=== PATIENT | female | born 1990 | race Caucasian/White ===

== ENCOUNTER 2019-09-07 02:14 | Day surgery (SDC) | payer OTHER, SELFPAY ==
[2019-08-24 11:39] VITALS: BMI 31.8
[2019-09-07] VITALS (8 sets, daily range): BP systolic 103–123; BP diastolic 62–83; PULSE 47–88; RESP 12–16; TEMP 36.1–36.7; O2SAT 99–100; BMI 31.8
--- NOTE | 2019-09-07 07:03 | WPDANESEPPF ---
Anes - Initial Pre Proc Eval Procedure: Operation Date: 09/07/19 07:30 Proposed Procedures p Laparoscopic Bilateral Tubal Cautery - Darlene Milton MD Date/Time: 09/07/19 07:03 Surgeon: Darlene Milton MD Pre Op Diagnosis: sterilization Patient Data Age: 29 Gender: F Height: 5 ft 3 in Weight: 81.65 kg Last Vital Signs Temp 36.1 C L 09/07/19 06:54 Pulse 57 L 09/07/19 06:54 Resp 14 09/07/19 06:54 BP 118/83 09/07/19 06:54 Pulse Ox 99 09/07/19 06:54 Allergies Allergy/AdvReac Type Severity Reaction Status Date / Time No Known Allergies Allergy Verified 09/07/19 06:38 Home Medications Medication Instructions Recorded Confirmed Type PNV cmb#95-ferrous fumarate-FA 1 tablet PO DAILY 06/23/19 09/07/19 History [] Patient hx anesthesia problems: none Family hx anesthesia problems: none PMFSH Surgical History Surgical History (Updated 09/07/19 @ 07:03 by Jonathan Limon MD) Hx of tonsillectomy Family History Family History Father Diabetes mellitus Hypertension Social History Social History Smoking status: Never smoker Substance use: never Gender identity (if verbalized by the patient): Female Spiritual care concerns: No Anes - Eval Final PreProcedure Day of Procedure 09/07/19 07:03 Patient weight: overweight Heart: regular rate and rhythm Lungs: clear to auscultation Airway: Mallampati scale class II Neurological: alert and oriented Last oral intake: >/= 8 hours ASA classification: II Emergent: no Anesthetic plan: proceed Anesthesia type and monitoring: general ETT and standard monitoring Informed Consent: The patient's anesthetic plan and its attendant risks and benefits were discussed with the patient/family/POA. Questions were solicited and answers provided to the satisfaction of the patient/family/POA.
[2019-09-07] MEDS: LACTATED RINGERS 1,000 ML 30 ML IV CONT ×2 (07:11→08:25)
--- NOTE | 2019-09-07 07:35 | PM.IMHP ---
H&P: HPI History of Present Illness Chief complaint: sterilization Narrative: Nathalia Mora is a 29 year old female who wants sterilization. We have agreed to perform laparoscopic bilateral tubal ligation. She understands the risk patient stands that injuries may occur that result in severe illness, more surgery, and hospitalization. She understands risk of hemorrhage infection. Review of Systems Constitutional: Constitutional: Reports no additional constitutional complaints, Denies fatigue, Denies headache(s), Denies lethargy and Denies weakness Eyes: Eyes: Reports no additional eye complaints, Denies blurry vision and Denies photophobia ENT: Reports as per HPI, Denies headache(s) and Denies neck pain Cardiovascular: Cardiovascular: Denies chest pain, Denies diaphoresis, Denies leg edema, Denies palpitations and Denies dyspnea Respiratory: Respiratory: Denies hemoptysis, Denies dyspnea and Denies wheezing Gastrointestinal: Gastrointestinal: Denies abdominal pain, Denies melena, Denies bloating, Denies hematochezia, Denies nausea and Denies vomiting Genitourinary: Genitourinary: Reports no additional female genitourinary complaints Musculoskeletal: Musculoskeletal: Denies joint swelling, Denies neck pain, Denies numbness and Denies stiffness Neurologic: Denies Abnormal speech present, Denies confusion, Denies headache(s), Denies numbness and Denies weakness Psychiatric: Psychiatric: Denies anxiety, Denies confusion, Denies depression, Denies homicidal ideation and Denies suicidal ideation Endocrine: Endocrine: Denies fatigue and Denies palpitations Allergic/Immunologic: Allergic/Immunologic: Denies wheezing COUNT INCLUDES THE [facility] Surgical History Surgical History (Updated 09/07/19 @ 07:03 by Jonathan Limon MD) Hx of tonsillectomy Family History Family History Father Diabetes mellitus Hypertension Social History Social History Smoking status: Never smoker Substance use: never Gender identity (if verbalized by the patient): Female Spiritual care concerns: No Meds Home Medications and Allergies Home Medications Medication Instructions Recorded Confirmed Type PNV cmb#95-ferrous fumarate-FA 1 tablet PO DAILY 06/23/19 09/07/19 History [] Allergies Allergy/AdvReac Type Severity Reaction Status Date / Time No Known Allergies Allergy Verified 09/07/19 06:38 Vital Signs Vital Signs - 24 hr 09/07/19 06:54 Temperature 97.0 F L Pulse Rate 57 L Respiratory Rate 14 Blood Pressure 118/83 Pulse Oximetry 99 Exam Const: General: healthy appearing, comfortable and no acute distress; No confusion Orientation/consciousness: No confusion Eyes: Direct Ophthalmoscopy: No photophobia Resp: Auscultation: clear to auscultation bilaterally, no rales, no rhonchi and no wheezes Cardio: Rate: regular rate Heart sounds: no click, no murmurs and no rubs GI: Inspection: non-distended GI Palp: No abdominal tenderness Auscultation: normal bowel sounds Neuro: General: No confusion Speech: No Abnormal speech present Extrem: General: normal to inspection, no pedal edema and no calf tenderness Assessment and Plan Assessment and plan (1) Unwanted fertility: Code(s): Z30.09 - Encounter for other general counseling and advice on contraception Status: Acute Assessment and Plan: This patient is a 29-year-old female who has unwanted fertility. We agreed to laparoscopic bilateral tubal ligation. She understands the risks, benefits, and alternatives. She has completed the informed consent process and is ready to proceed.
[2019-09-07] MEDS: KETOROLAC 30 MG/ML VIAL (*BKC) IV PUSH (08:14)
--- NOTE | 2019-09-07 08:26 | PM.PROC ---
Procedure Note - Detailed Date of procedure: 09/07/19 Pre-op diagnosis: sterilization Post-op diagnosis: same Procedure performed: Laparoscopic bilateral tubal ligation Description of procedure: Patient was taken the operating room. She has prepped draped in the dorsal lithotomy position after induction of general anesthesia. A 5 mm abdominal incision was made in left upper quadrant of the abdomen with scalpel. A 5 mm trocars inserted the intra-abdominal cavity under direct visualization of the scope. Pneumoperitoneum was achieved. A 5 mm periumbilical incision was made using a scalpel on the abdominal scan. A 5 mm trocar was inserted the intra-abdominal cavity under visualization of the scope. The fallopian tube was grasped with the bipolar cautery in the ampullary region. It was completely desiccated in a 1.5 cm area of the fallopian tube. This was performed in identical fashion on the contralateral side. The instruments were withdrawn. The pneumoperitoneum was reduced. The trocars were removed. The skin was closed with subcuticular 4 Monocryl. This incisions were covered with Dermabond. The patient tolerated the procedure well. She was taken to recover room in stable condition. Anesthesia: GETA Surgeon: Darlene Milton MD Estimated blood loss (mL): 10 Drains: No Packing: No Pathology: none sent Complications: No immediate complications Condition: stable Disposition: PACU Findings: Normal female pelvic anatomy.
== END 2019-09-07 10:20 | disposition home or self-care (01) ==
PROVIDERS: Visit Provider Obstetrics & Gynecology
PROC: (CPT 58671; principal; 2019-09-07 07:30)
DX: Z30.2 Encounter for sterilization (principal)
CPT/HCPCS: 58670; A9270; J0131; J0330; J1100; J1885; J2250; J2405; J2704; J3010; J7120

== ENCOUNTER 2019-09-16 18:41 | Emergency (ER) | payer OTHER, SELFPAY ==
[2019-09-16 19:02] VITALS: BP 124/83; PULSE 71; RESP 14; TEMP 36.7; O2SAT 99
--- NOTE | 2019-09-16 19:09 | ED.URI ---
HPI - URI/Sore Throat General Chief Complaint: Upper Respiratory Infection Stated Complaint: Headache/Sore Throat/Sneezing/Runny Nose Time Seen by Provider: 09/16/19 19:09 Source: patient and RN notes reviewed History of Present Illness HPI Narrative: Patient is a 29-year-old female that presents the urgent care with complaints of sneezing, rhinorrhea, sore throat, headache. Patient has been using Tylenol. States that she is currently breast-feeding and does not want to get her young sick. Patient states that her daughter was exposed to flu but no one in the home has been diagnosed with influenza or strep. No other acute complaints. Patient looks slightly fatigued but otherwise no acute distress noted. Patient read the plan of care. Related Data Home Medications Medication Instructions Recorded Confirmed PNV cmb#95-ferrous fumarate-FA 1 tablet PO DAILY 06/23/19 09/07/19 [] Allergies Allergy/AdvReac Type Severity Reaction Status Date / Time No Known Allergies Allergy Verified 09/16/19 19:11 Review of Systems Review of Systems: Narrative: CONSTITUTIONAL: Denies fever, chills, or sweats. EYES: Denies visual changes, redness, or discharge. ENT: Reports of sore throat, sneezing, runny nose CARDIOVASCULAR: Denies chest pain, palpitations, or edema. RESPIRATORY: Denies cough or dyspnea. GASTROINTESTINAL: Denies abdominal pain, nausea, vomiting, or diarrhea. GENITOURINARY: Denies dysuria or hematuria. SKIN: Denies rash or itching. MUSCULOSKELETAL: Denies back pain, joint pain, or myalgia. NEUROLOGIC: Reports of headache All other systems reviewed are negative, except as documented in HPI. [facility] Surgical History Surgical History (Updated 09/07/19 @ 07:03 by Jonathan Limon MD) Hx of tonsillectomy Social History Social History Smoking status: Never smoker Substance use: never Gender identity (if verbalized by the patient): Female Spiritual care concerns: No Comments At the time of my signature, I reviewed and agree with the nursing past medical, surgical, social, and family history. There is no relevant family history pertinent to the patient complaint. Exam Narrative: Exam Narrative: GENERAL: This is a well-nourished, well-developed patient, appears slightly fatigued HEAD: normocephalic, atraumatic. EYES: PERRL. Sclera clear/white. Vision is grossly intact. EARS: External ears normal, auditory canals clear and without drainage, TMs normal without perforation. Hearing grossly intact. NOSE: External nose normal with no obvious nasal discharge, nares without redness, no rhinorrhea. THROAT: Mucous membranes moist, posterior pharynx clear. Moderate postnasal drainage NECK: Neck supple CARDIOVASCULAR: Regular rate and rhythm without murmurs, gallops, or rubs. RESPIRATORY: Clear to auscultation. Breath sounds equal bilaterally. No wheezes, rales, or rhonchi. SKIN: warm, intact with no suspicious lesions or rash, good texture and turgor. NEURO: awake, alert, and oriented to person, place and time. There were no obvious focal neurologic abnormalities. EXTREMITIES: No clubbing, cyanosis, or edema. Course Vital Signs Vital signs: Vital Signs Temperature 98.1 F 09/16/19 19:02 Pulse Rate 71 09/16/19 19:02 Respiratory Rate 14 09/16/19 19:02 Blood Pressure 124/83 09/16/19 19:02 Pulse Oximetry 99 09/16/19 19:02 Temperature 98.1 F 09/16/19 19:02 Pulse Rate 71 09/16/19 19:02 Respiratory Rate 14 09/16/19 19:02 Blood Pressure 124/83 09/16/19 19:02 Pulse Oximetry 99 09/16/19 19:02 Reviewed MDM - URI/Sore Throat MDM Narrative Medical decision making narrative: Reviewed lab results with the patient. She is aware that strep swab was negative. Educated her on culture we will call within 72 hours if culture is positive and antibiotics are necessary. Patient is also aware that her influenza swab was negative.
== END 2019-09-16 19:30 | disposition home or self-care (01) ==
PROVIDERS: Emergency Provider Nurse Practitioner Family; PCP Internal Medicine
DX: J06.9 Acute upper respiratory infection, unspecified (principal); K21.9 Gastro-esophageal reflux disease without esophagitis
CPT/HCPCS: 87081; 87804; 87880; 99213; G0463

== ENCOUNTER 2019-09-28 15:55 | Emergency (ER) | payer OTHER, SELFPAY ==
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
[2019-09-28 16:02] VITALS: BP 136/86; PULSE 62; RESP 16; TEMP 37.3; O2SAT 100
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
== END 2019-09-28 17:25 | disposition home or self-care (01) ==
PROVIDERS: Emergency Provider Registered Nurse; PCP Internal Medicine
DX: S13.4XXA Sprain of ligaments of cervical spine, initial encounter (principal); V43.52XA Car driver injured in collision with other type car in traffic accident, initial encounter; M54.6 Pain in thoracic spine; K21.9 Gastro-esophageal reflux disease without esophagitis
CPT/HCPCS: 72050; 99213; G0463

== ENCOUNTER 2020-11-15 08:11 | Emergency (ER) | payer BC, SELFPAY ==
[2020-11-15 08:24] VITALS: BP 158/93; PULSE 91; RESP 20; TEMP 36.6; O2SAT 98
--- NOTE | 2020-11-15 08:55 | ED.NECK ---
HPI - Neck Pain/Injury General Chief Complaint: Neck Pain/Injury Stated Complaint: Neck pain radiating to shoulder Time Seen by Provider: 11/15/20 08:35 Source: patient and RN notes reviewed Mode of arrival: ambulatory Limitations: no limitations History of Present Illness HPI Narrative: Patient presents today complaining of right neck pain since 730 last night. Pain is radiating to the right shoulder. States she did have some intermittent tingling in the fingers last night, but this has since resolved. Denies any known injury or trauma. Denies weakness in her arms or hands. 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 States she has taken Tylenol and ibuprofen without relief. She has had both of her COVID-19 vaccinations. MD complaint: neck pain Related Data Allergies Allergy/AdvReac Type Severity Reaction Status Date / Time No Known Allergies Allergy Verified 11/15/20 08:38 Review of Systems Review of Systems: Narrative: CONSTITUTIONAL: Denies body aches, fever, chills, or sweats. EYES: Denies visual changes, redness, or discharge. ENT: Denies rhinorrhea, congestion, sore throat, or otalgia. CARDIOVASCULAR: Denies chest pain, palpitations, or edema. RESPIRATORY: Denies cough or dyspnea. GASTROINTESTINAL: Denies abdominal pain, nausea, vomiting, or diarrhea. GENITOURINARY: Denies dysuria or hematuria. SKIN: Denies rash, itching, or wounds. MUSCULOSKELETAL: Denies back pain, joint pain, or myalgia.+ Neck pain NEUROLOGIC: Denies headache, numbness, tingling, or weakness. PSYCH: Denies depression or anxiety. [facility] Past Medical History Medical History (Updated 11/15/20 @ 09:02 by Kati Larsen, [facility], ) Migraines Surgical History Surgical History (Updated 11/15/20 @ 08:57 by Kati Larsen, [facility], ) H/O tubal ligation Hx of tonsillectomy Family History Family History Father Diabetes mellitus Hypertension Social History Social History Smoking status: Never smoker Substance use: never Gender identity (if verbalized by the patient): Female Spiritual care concerns: No Comments At time of signature, I have reviewed and agree with nursing past medical, surgical, social and family history unless otherwise noted. Please see nursing chart for further information. There is no relevant family history pertinent to the presenting complaint Exam Narrative: Exam Narrative: GENERAL: Well-appearing, well-nourished, and in no acute distress. HEAD: Normocephalic, atraumatic. EYES: EOMI. No redness or drainage. Conjunctivae normal. ENT: Mucous membranes pink and moist. NECK: Normal AROM with increased pain in all directions. Supple. No lymphadenopathy. Tenderness to right cervical paraspinal muscle tenderness extending to the superior anterior and posterior shoulder musculature. No bony tenderness of the cervical spine. CHEST: No respiratory distress. MUSCULOSKELETAL: No bony tenderness of the thoracic spine. EXTREMITIES: Full AROM of the right shoulder with mild increased pain with internal and external rotation. Distal sensation intact. Capillary refill normal. Radial pulse normal. Handgrips equal and strong. Bicep strength equal and strong against resistance. SKIN: Warm, dry, no rash. Capillary refill normal. Normal skin turgor. NEURO: No focal deficits. Alert and oriented x3. Gait steady. PSYCH: Normal affect. No signs of depression or anxiety. Course Vital Signs Vital signs: Vital Signs Temperature 97.8 F 11/15/20 08:24 Pulse Rate 91 11/15/20 08:24 Respiratory Rate 20 11/15/20 08:24 Blood Pressure 158/93 H 11/15/20 08:24 Pulse Oximetry 98 11/15/20 08:24 Temperature 97.8 F 11/15/20 08:24 Pulse Rate 91 11/15/20 08:24 Respirator
== END 2020-11-15 09:05 | disposition home or self-care (01) ==
PROVIDERS: Emergency Provider Nurse Practitioner
DX: S16.1XXA Strain of muscle, fascia and tendon at neck level, initial encounter (principal); X58.XXXA Exposure to other specified factors, initial encounter; K21.9 Gastro-esophageal reflux disease without esophagitis
CPT/HCPCS: 99213; G0463

== ENCOUNTER 2022-10-09 08:44 | Emergency (ER) | payer BC, SELFPAY ==
--- NOTE | ~2022-10-09 | XR_ITS ---
EXAMINATION: XR ankle LT min 3V DATE: 10/09/2022 09:05 INDICATION: Left ankle injury and pain. TECHNIQUE: 4 views of left ankle were obtained. COMPARISON: None. FINDINGS: Bone alignment is normal. No fracture. There is mild osteoarthritis of talonavicular joint. There is ankle soft tissue swelling. IMPRESSION: 1. No fracture. Reviewed, dictated and finalized at location A. [employer] AND CE[employer]ER IMPRESSION: 1. No fracture.
--- NOTE | ~2022-10-09 | XR_ITS ---
EXAMINATION: XR foot LT min 3V DATE: 10/09/2022 09:05 INDICATION: Left foot injury and pain. TECHNIQUE: 4 views of left foot were obtained. COMPARISON: None. FINDINGS: There is moderate hallux valgus. No fracture. There is mild osteoarthritis of talonavicular joint and some of the interphalangeal joints and first metatarsophalangeal joint. IMPRESSION: 1. Moderate hallux valgus. 2. Mild polyarticular osteoarthritis. Reviewed, dictated and finalized at location A. [employer]ER
[2022-10-09 08:54] VITALS: BP 153/112; PULSE 93; RESP 16; TEMP 36.2; O2SAT 99
[2022-10-09 08:57] VITALS: BP 153/112; PULSE 93; RESP 16; TEMP 36.2; O2SAT 99
--- NOTE | 2022-10-09 09:09 | ED.GENADULT ---
HPI - General Adult General Chief complaint: Extremity Injury, Lower Stated complaint: Left Ankle Injury Time Seen by Provider: 10/09/22 09:17 Source: patient and RN notes reviewed Mode of arrival: ambulatory Limitations: no limitations History of Present Illness HPI narrative: 32-year-old female presents with concern for left ankle pain. Reports yesterday she slightly stepped off of the sidewalk and rolled the ankle. She reports lateral ankle pain that radiates to the foot. Reports pain at rest, worsening pain with weight-bearing and movement. She reports she used ice, elevation and ibuprofen MD complaint: Ankle sprain Related Data Home Medications Medication Instructions Recorded Confirmed amlodipine 10 mg tablet 10 mg PO DAILY 10/09/22 10/09/22 hydrochlorothiazide 12.5 mg capsule 12.5 mg PO DAILY 10/09/22 10/09/22 lisinopril 10 mg tablet 10 mg PO DAILY 10/09/22 10/09/22 ropinirole 1 mg tablet 1 mg PO TID 10/09/22 10/09/22 semaglutide 0.25 mg or 0.5 mg (2 0.25 mg subcut WEEKLY 10/09/22 10/09/22 mg/1.5 mL) subcutaneous pen injector (Ozempic) Allergies Allergy/AdvReac Type Severity Reaction Status Date / Time No Known Allergies Allergy Verified 10/09/22 08:55 Review of Systems Review of Systems: CONSTITUTIONAL: Denies malaise, chills, sweats, or fever. SKIN: Denies rash or itching, open skin, laceration, abrasion, redness, warmth, swelling. MUSCULOSKELETAL: Reports left ankle pain NEUROLOGIC: Denies numbness, weakness All systems reviewed & are unremarkable except as noted in HPI and below PMFSH Past Medical History Medical History (Updated 10/09/22 @ 09:25 by Tari Patterson NP) Migraines Surgical History Surgical History (Updated 11/15/20 @ 08:57 by Kati Larsen, [facility], ) H/O tubal ligation Hx of tonsillectomy Family History Family History Father Diabetes mellitus Hypertension Social History Social History Smoking status: Never smoker Substance use: never Gender identity (if verbalized by the patient): Female Spiritual care concerns: No Comments At time of signature, agree with nursing past medical, surgical, social and family history. There is no relevant family history pertinent to the presenting complaint Exam Narrative: GENERAL: Well-appearing, well-nourished, and in no acute distress. HEAD: Normocephalic, atraumatic. EYES: PERRLA, conjunctivae clear NECK: Supple. CHEST: Speaks in full sentences. No respiratory distress. HEART: Regular rate and rhythm. Normal and equal peripheral pulses. EXTREMITIES: Left ankle, foot, digits have normal strength and sensation, grossly normal range of motion. Mild lateral ankle and edema without ecchymosis. 5/5 strength with ankle and flexion and extension. Normal sensation with sensitivity to light touch and pain. Lateral ankle tenderness. No open wounds, no skin tenting, no devitalized tissue or atrophy, no trophic changes, no obvious deformity, alignment normal, nearby joints and structures intact. Distal pulses palpable and equal bilaterally, skin warm, dry, pink. Capillary refill less than 3 seconds. SKIN: Warm, dry, no rash. NEURO: Alert and oriented x3. PSYCH: Normal mood and affect Course Course Emergency Course: Patient is aware of diagnosis, understands and agrees to treatment plan. Anticipatory guidance given. Patient agrees to follow-up as directed and is aware of reasons to seek care at the emergency department. Portions of this record may have been created with voice recognition software Level of Care: Express Care Visit Vital Signs Vital signs: Vital Signs Temperature 97.1 F L 10/09/22 08:54 Pulse Rate 93 10/09/22 08:54 Respiratory Rate 16 10/09/22 08:54 Blood Pressure 153/112 H 10/09/22 08:54 Pulse Oximetry 99 10/09/22 08:54 Oxygen Delivery Room Air 10/09/22 08:54 Temperat
== END 2022-10-09 09:33 | disposition home or self-care (01) ==
PROVIDERS: Emergency Provider Nurse Practitioner
DX: S93.402A Sprain of unspecified ligament of left ankle, initial encounter (principal); X50.9XXA Other and unspecified overexertion or strenuous movements or postures, initial encounter; I10 Essential (primary) hypertension; K21.9 Gastro-esophageal reflux disease without esophagitis
CPT/HCPCS: 73610; 73630; 99214; G0463

== ENCOUNTER 2024-03-23 18:35 | Emergency (ER) | payer BC, SELFPAY | END 2024-03-23 19:25 | disposition home or self-care (01) | PROVIDERS: Emergency Provider Nurse Practitioner Family; PCP Physician Assistant | DX: U07.1 COVID-19 (principal); I10 Essential (primary) hypertension | CPT/HCPCS: 99213; G0463 ==

== ENCOUNTER 2025-01-13 16:13 | Emergency (ER) | payer BC, SELFPAY ==
--- OUTSIDE RECORDS SUMMARY | 2025-01-13 16:15 | XMS_ITS | Clinical Summary ---
Author Organization [facility] [address] [facility] Address [address] [address] Care Team Providers Care Counter Person Name Role Phone No, Physician Primary Care Provider [phone] Arlene Vargas Unavailable Unavailable Allergies Active Allergy Reactions Criticality Noted Date Comments Lisinopril Cough Low 02/07/2022 Topiramate Other (See comments) Low 04/22/2021 NUMBNESS FEELING IN FINGERTIPS Medications traMADol (ULTRAM) 50 mg tablet Take 1-2 tablets (50-100 mg total) by mouth every 6 (six) hours as needed for pain (1 tablet for mild to moderate pain or 2 tablets for severe pain). 20 tablet 07/15/20 17 Active Additional Information Patient not taking.Reported on 10/19/2024 ondansetron (ZOFRAN) 4 mg tablet Take 1 tablet (4 mg total) by mouth every 8 (eight) hours as needed for vomiting or nausea 40 tablet 10/14/19 24 Active Additional Information Patient not taking.Reported on 10/19/2024 pramipexole (MIRAPEX) 0.25 mg tablet Take 1 tablet (0.25 mg total) by mouth nightly Active buPROPion XL (WELLBUTRIN XL) 150 mg 24 hr tablet Take 1 tablet (150 mg total) by mouth speech therapist early intervention before breakfast 02/03/20 24 Active amLODIPine (NORVASC) 10 mg tablet Take 1 tablet (10 mg total) by mouth daily 05/28/20 23 Active SUMAtriptan (IMITREX) 50 mg tablet Take 1 tablet (50 mg total) by mouth daily as needed 04/22/20 21 Active LORazepam (ATIVAN) 1 mg tablet Take 1 tablet (1 mg total) by mouth once for 1 dose Take 30 minutes prior to procedure 1 tablet 08/19/19 25 Active docusate sodium (COLACE) 100 mg capsuleIndicat ions:constipat ion Take 1 capsule (100 mg total) by mouth 2 (two) times a day 60 capsule 3 08/19/19 25 Active Additional Information Patient not taking.Reported on 10/19/2024 estradioL (ESTRACE) 2 mg tablet Take 1 tablet (2 mg total) by mouth daily for 10 days 10 tablet 01/11/20 25 025 Active tranexamic acid (LYSTEDA) 650 mg tablet Take 2 tablets (1,300 mg total) by mouth 3 (three) times a day 30 tablet 08/18/19 25 025 Discontinued Active Problems Problem Noted Date Diagnosed Date Type 2 diabetes mellitus 05/18/2023 LEVI (obstructive sleep apnea) 11/08/2021 Restless legs syndrome (RLS) 11/08/2021 Post-nasal drip 11/08/2021 Other seborrheic dermatitis 09/28/2016 Other alopecia areata 09/26/2016 Encounters Date Type Department Care Team Description 01/10/2025 Orders Only [address] [address] Kati Schumacher DO 10/19/2024 9:15 AM CDT Office Visit [facility] [address] [place] [address] Kati Schumacher DO Encounter for routine checking of intrauterine contraceptive device (IUD) (Primary Dx) from Last 3 Months Immunizations Immunization Administration Dates Next Due Influenza, Quadrivalent, Spl it, Preservative Free, Intramuscular 05/02/2022,05/08/2021 Surgical History Surgery Date Site/Laterality Comments TONSILLECTOMY TUBAL LIGATION CHOLECYSTECTOMY Medical History Medical History Date Comments Anxiety Migraines Hypertension Sleep apnea Menstrual problem Family History Medical History Relation Name Comments Diabetes type II Father Mickey Castro Diabetes -T ype II; Hypertension Father Mickye Castro Hypertension; Other Father Mickey Castro Alive and well; Other Mother Alive and well; Relation Name Status Comments Father Mickey Castro Alive Mother Alive Social History Tobacco Use Types Packs/Day Years Used Date Smoking Tobacco: Never Cigarettes Smokeless Tobacco: Never Alcohol Use Standard Drinks/Week Comments Not Currently 0 (1 standard drink = 0.6 oz pur e alcohol) Comments No Sex and Gender Information Value Date Recorded Sex Assigned at Not on file Legal Sex Female 11:50 PM ZANJERO Gender Identity Female 06/29/2023 10:47 PM ZANJERO Sexual Orientation Straight 06/29/2023 10 :47 PM ZANJERO Occupation Industry Job Start Date Job End Date Not on file Not on file Not on file Not on file Obstetrics History Para Term AB IAB SAB Ectopic Multiple Livin g Live Births 3 3 3 0 0 0 0 0 0 3 3 Date Outcome GA Total Labor Labor//3rd Weight Sex Type Anes PTL Angelique A1 A5 Name Clin 2010 Term 3.232 kg (7 lb 2 oz) M Vag-S pont Living 2014 Term 3.912 kg (8 lb 10 oz) F Vag-S pont Living 2018 Term 3.685 kg (8 lb 2 oz) F Vag-S pont Living Last Filed Vital Signs Vital Sign Reading Time Taken Comments Blood Pressure 128/80 10/19/2024 9:13 AM CDT Pulse 101 03/29/2021 4:43 PM CDT Temperature 37 C (98.6 F) 03/29/2021 4:43 PM CDT Respiratory Rate 16 08/31/2019 11:38 AM ZANJERO Oxygen Saturation 96% 03/29/2021 4:43 PM CDT Inhaled Oxygen Concentration - - Weight 98.9 kg (218 lb) 10/19/2024 9:13 AM CDT Height 160 cm (5' 3) 05/03/2024 2:31 PM CDT Body Mass Index 38.62 05/03/2024 2:31 PM CDT Plan of Treatment Health Maintenance Due Date Last Done Comments Albumin Creatinine Ratio, Urine 1988 Depression Screening 1988 Hemoglobin A1C 1988 Hepatitis C Screening 1988 Dilated Eye Exam 1988 Foot Exam 1988 Lipid Panel 1988 DTaP/Tdap/Td Vaccine (1 - Tdap) 1999 Varicella Vaccines (1 of 2 - 13+ 2-dose series) 2001 Hepatitis B Screening 2006 Pneumococcal vaccine <65 (1 of 2 - PCV) 2007 eGFR 07/15/2018 07/15/2017 Covid-19 Vaccine (4 - 2023-2 5 season) 2024 07/18/2021, 11/09/2020, 10/18/2020 Influenza Vaccine (Season Ended) 2025 05/02/2022, 05/08/2021 Cervical Cancer Screening 05/03/20252023, 05/03/2024 Regular Well Visit/Exam 18-64 05/03/2025 05/03/2024 HPV Vaccines Aged Out No longer eligi ble based on patient's age to complete this topic Procedures Procedure Name Priority Date/Time Associated Diagnosis Comments HIGH RISK HPV DNA DETECTION WITH GENOTYPING Routine 05/03/2024 3:43 PM CDT Screening for malignant neoplasm of the cervix EGFR Add On 07/15/2017 12:41 PM ZANJERO from Last 3 Months or Most Recently Relevant to Health Maintenance Results * High Risk HPV DNA Detection with Genotyping (Molecular component) (05/03/2024 3:43 PM CDT) HPV HR 16 Not Detected Not Detected [facility] Comment:Testing performed by : [facility], [address] [place] [address] HPV HR 18 Not Detected Not Detected [facility] Comment:Testing performed by : [facility], [address] [place] [address] HPV HR Non 16/18 Not Detected Not Detected [facility] Comment: Interpretive Data Nucleic acid amplification for detection of high-risk Human Papilloma virus (HPV) is performed by the Sunitha Uri 6800 HPV test. This assay specifically detects HPV-16 and HPV-18 genotypes. The following HPV genotypes are detected as high-risk HPV: HPV-31, 33, 35, ,39, 45, 51, 52, 56, 58, 59, 66, and 68. This assay has been approved by the [place] Food and Drug Administration for detection of HPV in cervical specimens collected by a physician using an endocervical brush/spatula or cervical broom and placed in the ThinPrep Pap Test PreservCyt collection containers. The performance characteristics of this test have been verified by the [facility] Molecular Infectious Disease laboratory. Correlate with separately reported cytology results, as applicable. Interpretive data last revised 23 Testing performed by: [facility], [address] [place]., [address] Endocervical 05/03/2024 3:43 PM CDT 05/04/2024 2:34 PM CDT Narrative [facility] - 05/04/2024 9:08 PM CDT Clinical history and diagnosis->DX Z12.4 Testing type->Screening Last menstrual period (date if known)->Unknown Kati Schumacher DO LAB BODY FLUIDS AND STO OLS ORDERABLES Final Result [facility] [address] Department [place] [address] [facility] * eGFR (07/15/2017 12:41 PM ZANJERO) eGFR >60 mL/min/1.7 3 m2 [facility] ([facility] Comment: Interpretive Data Reference Interval Normal >/= 90 mL/min/1.73m2 Mildly decreased* 60 - 89 mL/min/1.73m2 Mildly to moderately decreased 45 - 59 mL/min/1.73m2 Moderately to severely decreased 30 - 44 mL/min/1.73m2 Severely decreased 15 - 29 mL/min/1.73m2 Kidney Failure < 15 mL/min/1.73m2 *Relative to young adult level If -Swiss multiply value by 1.16. Estimated glomerular filtration rate is determined by the CKD-EPI equation recommended by the National Kidney Foundation (KDIGO 2012 Clinical Practice Guideline for the Evaluation and Management of Chronic Kidney Disease. Kidney Intnl Suppl Aug 2012;3:1). The CKD-EPI equation should not be used for patients with unstable renal function and has not been validated in children and those over 70. Current interpretive data was last reviewed 2016. Blood specimen (specimen) 07/15/2017 12:41 PM ZANJERO 07/15/2017 1:17 PM ZANJERO Narrative [facility] ([facility]) - 07/15/2017 1:53 PM ZANJERO us Rikki Ma Jr., MD LAB BLOOD ORDERABL ES Final Result [facility] ([facility]) [address] [facility] [place] [address] from Last 3 Months or Most Recently Relevant to Health Maintenance [place] [employer] [place] [employer] [place] [employer] [place] [facility] Care Teams Counter Person Relationship Specialty Start Date End Date No, Physician PCP - General 08/31/19 Arlene Vargas 08/31/19
--- OUTSIDE RECORDS SUMMARY | 2025-01-13 16:15 | XMS_ITS | Encounter Summary ---
Author Organization [facility] Address [address] [place] [address] Phone Care Team Providers Care Product Marketing Manager Name Role Phone Meg Tyler PAC Primary Care Pro vider Flaca Harrell APRN, [employer] Unavailable Reason for Visit * Reason Comments Medication Refill Encounter Details Date Type Department Care Team (Late st Contact Info) Description 12/16/2022 Refill [facility] - Internal Medicine - [place] [address] [place] [id number] Meg Tyler, [facility] [address] [place] [address] Medication Refill Social History Tobacco Use Types Packs/Day Years Used Date Smoking Tobacco: Never Smokeless Tobacco: Never Alcohol Use Standard Drinks/Week Comments Not Currently 0 (1 standard drink = 0.6 oz pur e alcohol) PHQ-2 Answer Date Recorded Total Score - Questions 1-9 1 12/02 Sexually Active Control Partners Comments Not Currently Comments Unknown Sex and Gender Information Value Date Recorded Sex Assigned at Not on file Legal Sex Female 12:14 PM CDT Gender Identity Not on file Sexual Orientation Not on file documented as of this encounter Plan of Treatment Not on file documented as of this encounter Visit Diagnoses Not on filedocumented in this encounter Additional Health Concerns Infection Onset Date Last Indicated Resolved Time Respiratory Rule Out - RPA 05/14/2023 05/14/2023 1 2:47 PM CDT Assessment Noted Time PHQ-9 Depression Total Score: 0 04/22/20 10:00 AM CDT documented as of this encounter Care Teams Product Marketing Manager Relationship Specialty Start Date End Date Meg Tyler, [place] [address] [place] [address] PCP - General Physician Lunchroom Aide 04/22/21 Flaca Harrell, MULTI SITE LEASING CONSULTANT, [employer] [address] [place] [address] Nurse Practitioner Advanced Practice Nurse 12/01/23 documented as of this encounter
--- OUTSIDE RECORDS SUMMARY | 2025-01-13 16:15 | XMS_ITS | Clinical Summary ---
Author Organization [facility] Address [address] [place] [address] Care Team Providers Care Production Support Developer Name Role Phone Meg Tyler Primary Care Pro vider Flaca Harrell APRN, INTERNAL REVIEW AND AUDIT COMPLIANCE Unavailable Allergies Active Allergy Reactions Criticality Noted Date Comments Lisinopril Other (see Comments) Low 02/07/2022 cough Topiramate Other (see Comments) 04/22/2021 NUMBNESS FEELING IN FINGERTIPS Bupropion Other (see Comments) 11/07/2024 Increased depressed mood Medications loratadine (CLARITIN) 10 MG TabletIndications: Post-nasal drip Take 1 Tablet by mouth daily. 90 Tablet 3 11/09/19 22 Active ondansetron (Zofran) 4 MG Tablet Take 1 Tablet by mouth every 8 hours as needed for Nausea - 1st line. 15 Tablet 10/14/19 24 Active HYDROcodone-acetam inophen (NORCO) 5-325 MG TabletIndications: S/P laparoscopic cholecystectomy Take 1-2 Tablets by mouth every 8 hours as needed for Moderate or more severe pain. 12 Tablet 03/03/20 24 Active SUMAtriptan (IMITREX) 50 MG Tablet TAKE 1 TABLET BY MOUTH ONCE NEEDED FOR MIGRAINE UP TO 1 DOSE DIRECTED MAY REPEAT IN 2 HOURS 12 Tablet 1 07/19/20 24 Active amLODIPine (NORVASC) 10 MG Tablet TAKE 1 TABLET BY MOUTH EVERY DAY 90 Tablet 3 10/11/19 25 Active escitalopram (LEXAPRO) 10 MG Tablet Take 1 Tablet by mouth daily. 90 Tablet 11/08/19 25 Active pramipexole (MIRAPEX) 0.25 MG Tablet TAKE 1 TABLET BY MOUTH EVERY DAY AT NIGHT 30 Tablet 12/31/19 25 Active pramipexole (MIRAPEX) 0.25 MG Tablet Take 1 Tablet by mouth nightly. 30 Tablet 09/27/19 25 025 Discontinued Active Problems Problem Noted Date Diagnosed Date Type 2 diabetes mellitus 05/18/2023 Family history of heart disease 12/22/2022 LEVI (obstructive sleep apnea) 11/08/2021 Restless legs syndrome (RLS) 11/08/2021 Post-nasal drip 11/08/2021 Encounters Date Type Department Care Team Description 12/30/2024 Refill [facility] - [facility] - [place] [address] [place] [address] Meg Tyler, [facility] Medication Refill from Last 3 Months Immunizations Immunization Administration Dates Next Due Covid-19, Mrna, Lnp-s, Pf, 30 Mcg/0.3 Ml Dose (P fizer) 07/18/2021 Influenza Vaccine, Quadrivalent, PF 05/02/2022,1 Family History Medical History Relation Name Comments Heart Surgery Brother 1 Hypertension Brother 2 Anxiety disorder Brother 3 Hypertension Brother 3 Asthma Daughter 1 No Known Problems Daughter 2 Diabetes Father Heart Attack Father Hypertension Father Alzheimer's Disease Maternal Grandfather No Known Problems Maternal Grandmother Heart Attack Mother Heart Surgery Mother Pacemaker Mother No Known Problems Paternal Grandfather No Known Problems Paternal Grandmother No Known Problems Sister Asthma Son Relation Name Status Comments Brother 1 Alive Brother 2 Alive Brother 3 Alive Daughter 1 Alive Daughter 2 Alive Father Alive Maternal Grandfather Maternal Grandmother Mother Alive Paternal Grandfather Paternal Grandmother Sister Alive Son Alive Social History Tobacco Use Types Packs/Day Years Used Date Smoking Tobacco: Never Smokeless Tobacco: Never Tobacco Cessation:Counseling Given: Not Answered Alcohol Use Standard Drinks/Week Comments Yes 0 (1 standard drink = 0.6 oz pur e alcohol) ONCE IN A YEAR [facility] Utilities Answer Date Recorded In the past 12 months has Infogram, gas, oil, or water [employer] threatened to shut off services in your home? No 10/14/2023 Social Connection and Isolation Panel Answer Date Recorded In a typical week, how many times do you talk on the phone with family, friends, or neighbors? Three times a week 10/14/2023 How often do you get togethe r with friends or relatives? Twice a week 10/14/2023 How often do you attend chur ch or church services? More than 4 times per year 10/14/2023 Do you belong to any clubs o r organizations such as bahai groups, unions, fraternal or athletic groups, or school groups? Yes 10/14/2023 How often do you attend meet ings of the clubs or organizations you belong to? 1 to 4 times per year 10/14/2023 Are you , , di vorced, , never , or living with a partner? 10/14/2023 AUDIT-C Answer Date Recorded Q1: How often do you have a drink containing alc ohol? Monthly or less 10/14/2023 Q2: How many drinks containi ng alcohol do you have on a typical day when you are drinking? 1 or 2 10/14/2023 Q3: How often do you have si x or more drinks on one occasion? Never 10/14/2023 Overall Financial Resource Strain (CARDIA) Answe r Date Recorded How hard is it for you to pa y for the very basics like food, housing, medical care, and heating? Not very hard 10/14/2023 PHQ-2 Answer Date Recorded Total Score - Questions 1-9 1 12/02 [facility] - Occupational Stress Questionnaire Answer Date Recorded Do you feel stress - tense, restless, nervous, or anxious, or unable to sleep at night because your mind is troubled all the time - these days? To some extent 10/14/2023 Exercise Vital Sign Answer Date Recorde d On average, how many days pe r week do you engage in moderate to strenuous exercise (like a brisk walk)? Patient declined On average, how many minutes do you engage in exercise at this level? Patient declined 10/14/2023 Hunger Vital Sign Answer Date Recorded Within the past 12 months, y ou worried that your food would run out before you got the money to buy more. Never true 10/14/19 24 Within the past 12 months, t he food you bought just didn't last and you didn't have money to get more. Never true 10/14/2023 PRAPARE - Transportation Answer Date Re corded In the past 12 months, has l ack of transportation kept you from medical appointments or from getting medications? No 10/01 In the past 12 months, has l ack of transportation kept you from meetings, work, or from getting things needed for daily living? No 10/14/2023 Housing Stability Vital Sign Answer Gavin e Recorded In the last 12 months, was t here a time when you were not able to pay the mortgage or rent on time? No 10/14/2023 In the last 12 months, how many places have you lived? 1 10/14/2023 In the last 12 months, was t here a time when you did not have a steady place to sleep or slept in a correction (including now)? No 10/14/2023 Education Answer Date Recorded What is the highest level of school you have completed or the highest degree you have received? Bachelor's degree (e.g., BA, AB, BS) 12/22/2022 Sexually Active Control Partners Comments Not Currently Comments Unknown Sex and Gender Information Value Date Recorded Sex Assigned at Not on file Legal Sex Female 12:14 PM CDT Gender Identity Not on file Sexual Orientation Not on file Last Filed Vital Signs Vital Sign Reading Time Taken Comments Blood Pressure 131/85 03/03/2024 11:15 AM CDT Pulse 81 03/03/2024 11:15 AM CDT Temperature 37 C (98.6 F) 03/03/2024 11:15 AM CDT Respiratory Rate 16 03/03/2024 11:15 AM CDT Oxygen Saturation 96% 03/03/2024 11:15 AM CDT Inhaled Oxygen Concentration - - Weight 99.5 kg (219 lb 6.4 oz) 03/03/2024 6:35 A M CDT Height 160 cm (5' 3) 03/03/2024 6:35 AM CDT Body Mass Index 38.86 03/03/2024 6:35 AM CDT Plan of Treatment Health Maintenance Due Date Last Done Comments Diabetes: Eye Exam 1988 Diabetes: Foot Exam 1988 Hepatitis C Virus (HCV) Screening 1988 TdaP Immunization 1988 Human Papillomavirus (HPV) Immunization (1 - 3-dose series) 2003 Hepatitis B Immunization (1 of 3 - 19+ 3-dose series) 2007 Pneumococcal Immunization Combined (1 of 2 - PCV) 2007 SARS-COV-2 Immunization ( season) 2024 07/18/2021, 11/09/2020, 10/18/2020 Diabetes: Hemoglobin A1c 04/16/2024 024, 04/18/2022, 04/24/2021 Diabetes: Nephropathy Screening 10/14/2024 10/15/2023, 04/18/2022, 04/24/2021 Influenza Immunization (Seas on Ended) 2025 05/02/2022, 05/08/2021 Pap Smear 05/03/2027 05/03/2024 Cervical Cancer Screening (CCS) 05/03/2029 HPV/Cotest 05/03/2029 05/03/2024, 05/03/2024 Respiratory Syncytial Virus (RSV) Immunization (Adult) (1 - 1-dose 75+ series) 2063 Meningococcal Immunization (ACWY) Aged Out No longer eligible b ased on patient's age to complete this topic Rotavirus Immunization Aged Out No lo nger eligible based on patient's age to complete this topic Procedures Procedure Name Priority Date/Time Associated Diagnosis Comments HUMAN PAPILLOMA VIRUS (HPV) 05/03/2024 12:00 AM CDT PATHOLOGY CYTOLOGY NURSING UNIT CLERK 05/03/2024 12:00 AM CDT CMP (COMPREHENSIVE METABOLIC PANEL) Routine 10/15/2023 7:11 AM CDT Well adult exam HEMOGLOBIN A1C W/ ESTIMATED GLUCOSE Routine 10/15/2023 7:11 AM CDT Well adult exam from Last 3 Months or Most Recently Relevant to Health Maintenance Results * PATHOLOGY CYTOLOGY NURSING UNIT CLERK (05/03/2024 12:00 AM CDT) 05/03/2024 us Provider Scan PATHOLOGY/CYTOLOGY ORDERABLES Fi nal Result SCAN * HUMAN PAPILLOMA VIRUS (HPV) (05/03/2024 12:00 AM CDT) 05/03/2024 Provider Scan LAB SEND OUTS Final Result SCAN * (ABNORMAL) HEMOGLOBIN A1C W/ ESTIMATED GLUCOSE (10/15/2023 7:11 AM CDT) HGB-A1C 6.3(H) 4.0 - 6.0 % 10/15/2023 3:24 PM CDT [email or web address] Est Average Glucose 134.1 mg/dL 10/15/2023 3:24 PM CDT [email or web address] Blood Venipuncture / Unknown 10/15/2023 7:11 AM CDT 10/15/2023 7:11 AM CDT Narrative [email or web address] - 10/15/2023 3:24 PM CDT HEMOGLOBIN A1C: DIABETIC PATIENTS: WELL-CONTROLLED: 6.2 - 7.0 INTERMEDIATE WELL-CONTROLLED: 7.0 - 9.0 POORLY-CONTROLLED: >9.0 Meg Tyler PAC CHEMISTRY ORDERAB LES Final Result Performing Organization Address City/[facility]/ZIP Co de Phone Number [facility] [address] [place] [address] * (ABNORMAL) CMP (COMPREHENSIVE METABOLIC PANEL) (10/15/2023 7:11 AM CDT) SODIUM 139 136 - 145 mmol/L 10/15/2023 3:22 PM CDT [email or web address] POTASSIUM 4.3 3.5 - 5.1 mmol/L 10/15/2023 3:22 PM CDT [email or web address] CHLORIDE 107 98 - 107 mmol/L 10/15/2023 3:22 PM CDT [email or web address] CO2, VENOUS 21(L) 22 - 30 mmol/L 10/15/2023 3:22 PM CDT [email or web address] ANION GAP 15.3 <18.0 mmol/L 10/15/2023 3:22 PM CDT [email or web address] GLUCOSE 124(H) 70 - 99 mg/dL 10/15/2023 3:22 PM CDT [email or web address] BUN 14 5 - 18 mg/dL 10/15/2023 3:22 PM CDT [facility] CREATININE, BLOOD 0.80 0.60 - 1.00 mg/dL 10/15/2023 3:22 PM CDT [facility] BUN/CREATININE RATIO 18 12 - 20 ratio 10/15/2023 3:22 PM CDT [facility] TOTAL PROTEIN 7.2 6.3 - 8.2 g/dL 10/15/2023 3:22 PM CDT [facility] ALBUMIN 4.3 3.5 - 5.0 g/dL 10/15/2023 3:22 PM CDT [facility] A/G RATIO 1.5 1.0 - 2.2 10/15/2023 3:22 PM CDT [facility] CALCIUM 9.8 8.7 - 10.5 mg/dL 10/15/2023 3:22 PM CDT [facility] T BILI 0.3 0.2 - 1.2 mg/dL 10/15/2023 3:22 PM CDT [facility] SGOT (AST) 75(H) 5 - 34 U/L 10/15/2023 3:22 PM CDT [facility] SGPT (ALT) 117(H) 0 - 55 U/L 10/15/2023 3:22 PM CDT [facility] ALKALINE PHOSPHATASE 73 40 - 150 U/L 10/15/2023 3:22 PM CDT [facility] IS THE PATIENT REQUIRED TO BE FASTING? No 10/15/2023 3:22 PM CDT [facility] GFR, ESTIMATED >60 >=60 10/15/2023 3:22 PM CDT [facility] Comment: Creatinine Clearance is the preferred criteria for selecting drug dose adjustments in renally impaired patients. The GFR is provided as additional pertinent clinical information. GFR is reported in mL/min/1.73 sq m. Calculation based on the Chronic Kidney Disease Epidemiology Collaboration (CKD- EPI) equation refit without adjustment for race. GFR, EST. >60 >=60 10/14/2 024 3:22 PM CDT [facility] GFR, EST. NONAFRICAN >60 >=60 10/15/2023 3:22 PM CDT [facility] Blood Venipuncture / Unknown 10/15/2023 7:11 AM CDT 10/15/2023 7:11 AM CDT Meg Tyler PAC CHEMISTRY ORDERAB LES Final Result [facility] [address] [place] [address] from Last 3 Months or Most Recently Relevant to Health Maintenance Insurance [facility] Care Teams Production Support Developer Relationship Specialty Start Date End Date Meg Tyler, [facility] [address] [place] [address] PCP - General Physician Pipe Liner 04/22/21 Flaca Harrell APRN, INTERNAL REVIEW AND AUDIT COMPLIANCE [address] [place] [address] Nurse Practitioner Advanced Practice Nurse 12/01/23
--- OUTSIDE RECORDS SUMMARY | 2025-01-13 16:15 | XMS_ITS | Encounter Summary ---
Author Organization [facility] Address [address] [place] [address] Phone Care Team Providers Care Social Insurance Adviser Name Role Phone Meg Tyler PAC Primary Care Pro vider Flaca Harrell APRN, SEWING MACHINE OPERATOR PLASTIC ZIPPER Unavailable Reason for Visit * Reason Comments Medication Refill Encounter Details Date Type Department Care Team (Late st Contact Info) Description 01/09/2024 Refill [facility] - Internal Medicine - [place] [address] [place] [id number] Meg Tyler, [place] [address] [place] [address] Medication Refill Social History Tobacco Use Types Packs/Day Years Used Date Smoking Tobacco: Never Smokeless Tobacco: Never Alcohol Use Standard Drinks/Week Comments Not Currently 0 (1 standard drink = 0.6 oz pur e alcohol) [facility] Utilities Answer Date Recorded In the past 12 months has [employer] electric, gas, oil, or water company threatened to shut off services in your home? No 10/14/2023 Social Connection and Isolation Panel Answer Date Recorded In a typical week, how many times do you talk on the phone with family, friends, or neighbors? Three times a week 10/14/2023 How often do you get togethe r with friends or relatives? Twice a week 10/14/2023 How often do you attend [facility] or [facility] services? More than 4 times per year 10/14/2023 Do you belong to any clubs o r organizations such as methodist groups, unions, fraternal or athletic groups, or [...] Total Score - Questions 1-9 1 12/02 [facility] - Occupational Stress Questionnaire Answer Date Recorded [...] place to sleep or slept in a custodial (including now)? No 10/14/2023 Education Answer Date [...] on file documented as of this encounter Miscellaneous Notes * Telephone Encounter - Tari Perkins RN - 01/11/2024 8:40 AM CDT Medication failed the protocol, provider to review and approve the medication order if appropriate. Requested Prescriptions Pending Prescriptions Disp Refills escitalopram (LEXAPRO) 10 MG Tablet [Pharmacy Med Name: ESCITALOPRAM 10 MG TABLET] 90 Tablet 0 Sig: TAKE 1 TABLET BY MOUTH EVERY DAY SSRI (6 Month Refill Only) Protocol Failed - 01/09/2024 7:25 AM Failed - Has an encounter in the past 6 months with a depression, anxiety, adjustment disorder, OCD, or PTSD visit diagnosis Passed - No test in the past 12 months or most recent test was negative Passed - No active on record Passed - Visit with relevant provider in past 6 months or upcoming 90 days Recent Visits Date Type Provider Dept 10/14/23 [facility], [place] [facility] Showing recent visits within past 182 days and meeting all other requirements Future Appointments No visits were found meeting these conditions. Showing future appointments within next 90 days and meeting all other requirements Passed - Patient has established therapy with SSRI for at least 6 months documented in this encounter Plan of Treatment Not on file documented as of this encounter Visit Diagnoses Not on filedocumented in this encounter Additional Health Concerns Assessment Noted Time PHQ-9 Depression Total Score: 0 04/22/20 10:00 AM CDT documented as of this encounter Care Teams Social Insurance Adviser Relationship Specialty Start Date End Date Meg Tyler PAC [address] [place] [address] PCP - General Physician Outgoing Inspector 04/22/21 Flaca Harrell APRN, SEWING MACHINE OPERATOR PLASTIC ZIPPER [address] [place] [address] Nurse Practitioner Advanced Practice Nurse 12/01/23 documented as of this encounter
--- OUTSIDE RECORDS SUMMARY | 2025-01-13 16:15 | XMS_ITS | Encounter Summary ---
Author Organization [facility] Address [address] [place] [address] Phone Care Team Providers Care Mine Boss Name Role Phone Meg Tyler PAC Primary Care Pro vider Flaca Harrell APRN, STRIPPER BLACK AND WHITE Unavailable Reason for Visit * Reason Comments Medication Refill Encounter Details Date Type Department Care Team (Late st Contact Info) Description 06/21/2023 [facility]ill [facility] - [place] [address] [place] [phone] Meg Tyler, [place] [address] [place] [address] Medication Refill Social History Tobacco Use Types Packs/Day Years Used Date Smoking Tobacco: Never Smokeless Tobacco: Never Alcohol Use Standard Drinks/Week Comments Not Currently 0 (1 standard drink = 0.6 oz pur e alcohol) PHQ-2 Answer Date Recorded Total Score - Questions 1-9 1 12/02 Education Answer Date Recorded What is the [...] Telephone Encounter - Tari Perkins RN - 06/22/2023 8:08 AM CST Medication failed the protocol, provider to review and approve the medication order if appropriate. Requested Prescriptions Pending Prescriptions Disp Refills escitalopram (LEXAPRO) 10 MG Tablet [Pharmacy Med Name: ESCITALOPRAM 10 MG TABLET] 90 Tablet 0 Sig: TAKE 1 TABLET BY MOUTH EVERY DAY SSRI (6 Month Refill Only) Protocol Failed - 06/21/2023 7:32 AM Failed - Patient has established therapy with SSRI for at least 6 months Passed - No test in the past 12 months or most recent test was negative Passed - No active on record Passed - Visit with relevant provider in past 6 months or upcoming 90 days Recent Visits Date Type Provider Dept 05/14/23 Office Visit Meg Tyler PAC [facility] 12/22/22 Office Visit Meg Tyler PAC [facility] [place] Showing recent visits within past 182 days and meeting all other requirements Future Appointments No visits were found meeting these conditions. Showing future appointments within next 90 days and meeting all other requirements Passed - Has an encounter in the past 6 months with a depression, anxiety, adjustment disorder, OCD, or PTSD visit diagnosis MCORN PRESS FEEDER documented in this encounter Plan of Treatment Not on file documented as of this encounter Visit Diagnoses Not on filedocumented in this encounter Additional Health Concerns Assessment Noted Time PHQ-9 Depression Total Score: 0 04/22/20 21 10:00 AM CDT documented as of this encounter Care Teams Mine Boss Relationship Specialty Start Date End Date Meg Tyler PAC [address] [place] [address] PCP - General Physician Efficiency Analyst 04/22/21 Flaca Harrell APRN, STRIPPER BLACK AND WHITE [address] [place] [address] Nurse Practitioner Advanced Practice Nurse 12/01/23 documented as of this encounter
--- OUTSIDE RECORDS SUMMARY | 2025-01-13 16:15 | XMS_ITS | Encounter Summary ---
Author Organization [facility] Address [address] [place] [address] Phone Care Team Providers Care Nba Player Name Role Phone Meg Tyler PAC Primary Care Pro vider Flaca Harrell APRN, JEWELER APPRENTICE Unavailable Reason for Visit * Reason Comments Medication Refill Encounter Details Date Type Department Care Team (Late st Contact Info) Description 03/20/2023 [facility]ill [facility] - [place] [address] [place] [id number] Meg Tyler, [place] [address] [place] [address] Medication Refill Social History Tobacco Use Types [...] Telephone Encounter - Tari Perkins RN - 03/20/2023 8:44 AM CDT Medication failed the protocol, provider to review and approve the medication order if appropriate. Requested Prescriptions Pending Prescriptions Disp Refills escitalopram (LEXAPRO) 10 MG Tablet [Pharmacy Med Name: ESCITALOPRAM 10 MG TABLET] 90 Tablet 0 Sig: TAKE 1 TABLET BY MOUTH EVERY DAY SSRI (6 Month Refill Only) Protocol Failed - 03/20/2023 12:56 AM Failed - Patient has established therapy with SSRI for at least 6 months Passed - No test in the past 12 months or most recent test was negative Passed - No active on record Passed - Visit with relevant provider in past 6 months or upcoming 90 days Recent Visits Date Type Provider Dept 12/22/22 Office Visit Meg Tyler PAC [facility] [place] Showing recent visits within past 182 days and meeting all other requirements Future Appointments No visits were found meeting these conditions. Showing future appointments within next 90 days and meeting all other requirements Passed - Has an encounter in the past 6 months with a depression, anxiety, adjustment disorder, OCD, or PTSD visit diagnosis documented in this encounter Plan of Treatment [...] documented as of this encounter Care Teams Nba Player Relationship Specialty Start Date End Date Meg Tyler PAC [address] [place] [address] PCP - General Physician Hat And Cap Parts Cutter Hand 04/22/21 Flaca Harrell APRN, JEWELER APPRENTICE [address] [place] [address] Nurse Practitioner Advanced Practice Nurse 12/01/23 documented as of this encounter
--- OUTSIDE RECORDS SUMMARY | 2025-01-13 16:15 | XMS_ITS | Encounter Summary ---
Author Organization [facility] Address [address] [place] [address] Phone Care Team Providers Care Services Rep Name Role Phone Meg Tyler PAC Primary Care Pro vider Flaca Harrell APRN, ROTARY ENGINE ASSEMBLER Unavailable Reason for Visit * Reason Comments Medication Refill Encounter Details Date Type Department Care Team (Late st Contact Info) Description 06/21/2023 Refill [facility] - Pulmonology & Sleep Medicine - [place] [address] [place] [phone] Sharon Deleon, SEBAS, ROTARY ENGINE ASSEMBLER [address] [address] Medication Refill Social History Tobacco Use Types [...] encounter Miscellaneous Notes * Telephone Encounter - Carol Barber, RN - 06/22/2023 8:53 AM CST Patient needs an appointment RANCE ACCOUNT ASSISTANT documented in this encounter Plan of Treatment Not on file documented as of this encounter Visit Diagnoses Diagnosis Restless legs syndrome (RLS) documented in this encounter Additional Health Concerns Assessment Noted Time PHQ-9 Depression Total Score: 0 04/22/20 10:00 AM CDT documented as of this encounter Care Teams Services Rep Relationship Specialty Start Date End Date Meg Tyler PAC [address] [place] [address] PCP - General Physician Optometry Assistant 04/22/21 Flaca Harrell APRN, ROTARY ENGINE ASSEMBLER [address] [place] [address] Nurse Practitioner Advanced Practice Nurse 12/01/23 documented as of this encounter
--- OUTSIDE RECORDS SUMMARY | 2025-01-13 16:15 | XMS_ITS | Encounter Summary ---
Author Organization [facility] Address [address] [place] [address] Phone Care Team Providers Care Volunteer Manager Name Role Phone Meg Tyler PAC Primary Care Pro vider Flaca Harrell APRN, CROSS COUNTRY/TRACK AND FIELD COACH Unavailable Reason for Visit * Reason Comments Medication Refill Encounter Details Date Type Department Care Team (Late st Contact Info) Description 03/26/2023 Refill [facility] - Internal Medicine - [place] [address] [place] [id number] Meg Tyler, [place] [address] [place] [address] Medication Refill Social History Tobacco Use Types [...] Telephone Encounter - Tari Perkins RN - 03/27/2023 8:46 AM CDT Medication failed the protocol, provider to review and approve the medication order if appropriate. Requested Prescriptions Pending Prescriptions Disp Refills Ozempic, 0.25 or 0.5 MG/DOSE, 2 MG/3ML Solution Pen-injector [Pharmacy Med Name: OZEMPIC 0.25-0.5 MG/DOSE PEN] Si.5 mg by Subcutaneous route once a week. GLP-1 Agonists Protocol Failed - 03/26/2023 4:37 PM Failed - HgA1C result on record in past 6 months HGB-A1C Date Value Ref Range Status 04/18/2022 6.3 (H) 4.0 - 6.0 % Final Failed - GFR on record in past 6 months GFR, EST. NONAFRICAN Date Value Ref Range Status 04/18/2022 >60 >=60 Final Passed - Lipid panel result on file in past 12 months LDL Date Value Ref Range Status 04/18/2022 99 5 - 130 mg/dL Final HDL CHOLESTEROL Date Value Ref Range Status 04/18/2022 38.5 (L) >40 mg/dL Final CHOLESTEROL Date Value Ref Range Status 04/18/2022 167 <=200 mg/dL Final TRIGLYCERIDES Date Value Ref Range Status 04/18/2022 148 <150 mg/dL Final VLDL Date Value Ref Range Status 04/18/2022 30 5 - 55 mg/dL Final CHOL/HDL RATIO Date Value Ref Range Status 04/18/2022 4.3 0.0 - 4.4 Final NON-HDL CHOLESTEROL Date Value Ref Range Status 04/18/2022 128.5 <130 mg/dL Final Passed - Visit with relevant provider in past 6 months or upcoming 90 days Recent Visits Date Type Provider Dept 12/22/22 Office Visit Meg Tyler, LOUISE [facility] Donna Showing recent visits within past 182 days and meeting all other requirements Future Appointments No visits were found meeting these conditions. Showing future appointments within next 90 days and meeting all other requirements documented in this encounter Plan of Treatment [...] documented as of this encounter Care Teams Volunteer Manager Relationship Specialty Start Date End Date Meg Tyler, PAC [address] [place] [address] PCP - General Physician Clam Dredger 04/22/21 Flaca Harrell APRN, CROSS COUNTRY/TRACK AND FIELD COACH [address] [place] [address] Nurse Practitioner Advanced Practice Nurse 12/01/23 documented as of this encounter
--- OUTSIDE RECORDS SUMMARY | 2025-01-13 16:15 | XMS_ITS | Referral Summary ---
Author Organization [facility] [address] [facility] lt Address [address] [place] [address] Care Team Providers Care Pump Rebuilder Name Role Phone No, Physician Primary Care Provider [phone] Arlene Vargas Unavailable Unavailable Encounters Date Type Department Care Team Description 01/10/2025 Orders Only [facility] [address] [place] [address] Kati Schumacher DO 10/19/2024 9:15 AM CDT Office Visit [facility] [address] [place] [address] Kati Schumacher DO Encounter for routine checking of intrauterine contraceptive device (IUD) (Primary Dx) from Last 3 Months Allergies Active Allergy Reactions Criticality Noted Date [...] 1 tablet (150 mg total) by mouth commercial loan analyst before breakfast 02/03/20 24 Active amLODIPine (NORVASC) [...] seborrheic dermatitis 09/28/2016 Other alopecia areata 09/26/2016 Immunizations Immunization Administration Dates Next Due Influenza, Quadrivalent, Spl it, Preservative Free, Intramuscular 05/02/2022,05/08/2021 Social History Tobacco Use Types Packs/Day Years Used Date Smoking Tobacco: Never Cigarettes Smokeless Tobacco: Never Alcohol Use Standard Drinks/Week Comments Not Currently 0 (1 standard drink = 0.6 oz pur e alcohol) Comments No Sex and Gender Information Value Date Recorded Sex Assigned at Not on file Legal Sex Female 11:50 PM LIVESTOCK RANCHER Gender Identity Female 06/29/2023 10:47 PM LIVESTOCK RANCHER Sexual Orientation Straight 06/29/2023 10 :47 PM LIVESTOCK RANCHER Occupation Industry Job Start Date Job End Date Not on file Not on file Not on file Not on file Last Filed Vital Signs Vital Sign Reading Time Taken Comments Blood Pressure 128/80 10/19/2024 9:13 AM CDT Pulse 101 03/29/2021 4:43 PM CDT Temperature 37 C (98.6 F) 03/29/2021 4:43 PM CDT Respiratory Rate 16 08/31/2019 11:38 AM LIVESTOCK RANCHER Oxygen Saturation 96% 03/29/2021 4:43 PM CDT Inhaled Oxygen Concentration - - Weight 98.9 kg (218 lb) 10/19/2024 9:13 AM CDT Height 160 cm (5' 3) 05/03/2024 2:31 PM CDT Body Mass Index 38.62 05/03/2024 2:31 PM CDT Plan of Treatment Not on file Procedures Procedure Name Priority Date/Time Associated Diagnosis Comments HIGH RISK HPV DNA DETECTION WITH GENOTYPING Routine 05/03/2024 3:43 PM CDT Screening for malignant neoplasm of the cervix EGFR Add On 07/15/2017 12:41 PM LIVESTOCK RANCHER from Last 3 Months or Most Recently Relevant to Health Maintenance Results * High Risk HPV DNA Detection with Genotyping (Molecular component) (05/03/2024 3:43 PM CDT) HPV HR 16 Not Detected Not Detected [facility] Comment:Testing performed by : [facility], [address] [place]., [address] HPV HR 18 Not Detected Not Detected [facility] Comment:Testing performed by : [facility], [address] [place]., [address] HPV HR Non 16/18 Not Detected Not [...] this test have been verified by the [facility] Molecular Infectious Disease laboratory. Correlate with separately reported cytology results, as applicable. Interpretive data last revised 23 Testing performed by: [facility], [address] [place]., [address] Endocervical 05/03/2024 3:43 PM CDT 05/04/2024 2:34 PM CDT [facility] CHEN - 05/04/2024 9:08 PM CDT Clinical history and diagnosis->DX Z12.4 Testing type->Screening Last menstrual period (date if known)->Unknown us Kati Schumacher DO LAB BODY FLUIDS AND STO OLS ORDERABLES Final Result MINDY CHEN [address] Department [place] [address] [facility] * eGFR (07/15/2017 12:41 PM LIVESTOCK RANCHER) eGFR >60 mL/min/1.7 3 m2 [facility] CARP[facility] ([facility]) Comment: Interpretive Data Reference Interval Normal >/= 90 mL/min/1.73m2 Mildly decreased* 60 - 89 mL/min/1.73m2 Mildly to moderately decreased 45 - 59 mL/min/1.73m2 Moderately to severely decreased 30 - 44 mL/min/1.73m2 Severely decreased 15 - 29 mL/min/1.73m2 Kidney Failure < 15 mL/min/1.73m2 *Relative to young adult level If -Citizen Of [place] multiply value by 1.16. Estimated glomerular filtration [...] 2016. Blood specimen (specimen) 07/15/2017 12:41 PM LIVESTOCK RANCHER 07/15/2017 1:17 PM LIVESTOCK RANCHER Narrative [facility]Y CARPIO ([place]) - 07/15/2017 1:53 PM LIVESTOCK RANCHER us Rikki Ma Jr., MD LAB BLOOD ORDERABL ES Final Result [facility] CARPIO ([place]) [address] [facility] [place] [address] from Last 3 Months or Most Recently Relevant to Health Maintenance [place] [employer] [place] [employer] [place] [employer] [place] [employer] [place] Care Teams Pump Rebuilder Relationship Specialty Start Date End Date No, Physician PCP - General 08/31/19 Arlene Vargas 08/31/19
[2025-01-13 16:19] VITALS: BP 154/98; PULSE 75; RESP 18; TEMP 37; O2SAT 98
--- NOTE | 2025-01-13 16:43 | ED_ITS ---
HPI - Ear Problem General Chief complaint: Ear Stated complaint: Left Ear Pain Time Seen by Provider: 01/13/25 16:28 Source: patient and RN notes reviewed Mode of arrival: ambulatory Limitations: no limitations History of Present Illness HPI Narrative: Patient presents today complaining of left ear pain and muffling since yesterday that is radiating down her neck. Denies any additional symptoms. Currently rates her pain 7/10 and has tried Tylenol without relief. Related Data Home Medications ?Medication ?Instructions ?Recorded ?Confirmed ?Last Taken ?Type amlodipine 10 mg tablet 10 mg PO DAILY 10/09/22 10/09/22 Unknown History hydrochlorothiazide 12.5 mg capsule 12.5 mg PO DAILY 10/09/22 10/09/22 Unknown History lisinopril 10 mg tablet 10 mg PO DAILY 10/09/22 10/09/22 Unknown History ropinirole 1 mg tablet 1 mg PO TID 10/09/22 10/09/22 Unknown History semaglutide 0.25 mg or 0.5 mg (2 0.25 mg subcut WEEKLY 10/09/22 10/09/22 Unknown History mg/1.5 mL) subcutaneous pen injector (Ozempic) escitalopram oxalate 10 mg tablet mg 01/13/25 Unknown History estradiol 2 mg tablet mg 01/13/25 Unknown History pramipexole 0.25 mg tablet mg 01/13/25 Unknown History Allergies Allergy/AdvReac Type Severity Reaction Status Date / Time No Known Allergies Allergy Verified 01/13/25 16:23 Review of Systems Review of Systems: CONSTITUTIONAL: Denies body aches, fever, chills, or sweats. EYES: Denies visual changes, redness, or discharge. ENT: Denies rhinorrhea, congestion, sore throat. + left ear pain CARDIOVASCULAR: Denies chest pain, palpitations, or edema. RESPIRATORY: Denies cough or dyspnea. GASTROINTESTINAL: Denies abdominal pain, nausea, vomiting, or diarrhea. GENITOURINARY: Denies dysuria or hematuria. SKIN: Denies rash, itching, or wounds. MUSCULOSKELETAL: Denies back pain, joint pain, or myalgia. NEUROLOGIC: Denies headache, numbness, tingling, or weakness. PSYCH: Denies depression or anxiety. [facility] Past Medical History Medical History Migraines Surgical History Surgical History H/O tubal ligation Hx of tonsillectomy Family History Family History Father Diabetes mellitus Hypertension Social History Social History Smoking status: Never smoker Substance use: never Gender identity (if verbalized by the patient): Female Spiritual care concerns: No Comments At time of signature, I have reviewed and agree with nursing past medical, surgical, social and family history unless otherwise noted. Please see nursing chart for further information. There is no relevant family history pertinent to the presenting complaint Exam Narrative: GENERAL: Well-appearing, well-nourished, and in no acute distress. HEAD: Normocephalic, atraumatic. EYES: EOMI. No redness or drainage. Conjunctivae normal. ENT: Mucous membranes pink and moist. Nares clear. No rhinorrhea. Right TM and canal normal. Left TM occluded with cerumen impaction. See procedure note. NECK: Normal AROM. CHEST: No respiratory distress. EXTREMITIES: Normal range of motion. No edema. SKIN: Warm, dry, no rash. Capillary refill normal. Normal skin turgor. NEURO: No focal deficits. Alert and oriented x3. Gait steady. PSYCH: Normal affect. No signs of depression or anxiety. Course Course Level of Care: Express Care Visit Vital Signs Vital signs: Vital Signs Temperature 98.6 F 01/13/25 16:19 Pulse Rate 75 01/13/25 16:19 Respiratory Rate 18 01/13/25 16:19 Blood Pressure 154/98 H 01/13/25 16:19 Pulse Oximetry 98 01/13/25 16:19 Oxygen Delivery Room Air 01/13/25 16:19 Temperature 98.6 F 01/13/25 16:19 Pulse Rate 75 01/13/25 16:19 Respiratory Rate 18 01/13/25 16:19 Blood Pressure 154/98 H 01/13/25 16:19 Pulse Oximetry 98 01/13/25 16:19 Oxygen Delivery Room Air 01/13/25 16:19 Reviewed Procedures Ear Wax Removal Left Ear: Ear Wax Removal Date: 01/13/25 Ear Wax Removal Time: 16:45 Results: Re-examined: cerumen removed completely TM Examination: TM(s) intact, normal appearance Ear Canal Exam: atraumatic Patient Tolerated Procedure: well Complications: no problems Technique: ear canal irrigated Medical Decision Making MDM Narrative Medical decision making narrative: Cerumen cleared from left ear canal. Muffling and pain has significantly decreased. TM normal. No infection detected. No prescriptions indicated at this time. Symptoms likely due to impacted cerumen. Anticipatory guidance given. Differential Diagnosis Differential Diagnosis: Otitis media, otitis externa, ruptured TM, serous otitis, cerumen impaction Vital Signs Vital Signs: Vital Signs Temperature 98.6 F 01/13/25 16:19 Pulse Rate 75 01/13/25 16:19 Respiratory Rate 18 01/13/25 16:19 Blood Pressure 154/98 H 01/13/25 16:19 Pulse Oximetry 98 01/13/25 16:19 Oxygen Delivery Room Air 01/13/25 16:19 Temperature 98.6 F 01/13/25 16:19 Pulse Rate 75 01/13/25 16:19 Respiratory Rate 18 01/13/25 16:19 Blood Pressure 154/98 H 01/13/25 16:19 Pulse Oximetry 98 01/13/25 16:19 Oxygen Delivery Room Air 01/13/25 16:19 Critical Care Time Critical Care Time Critical Care Time: No Discharge Plan Discharge Clinical Impression: Impacted cerumen of left ear Patient Disposition: Home Condition: Stable Additional Instructions: Ear wax has been removed from your ear, and this is likely the source of your pain and muffling. Follow-up with your PCP next week if you have any persistent pain. Your blood pressure was elevated above 120/80 today at Urgent Care. This puts you above the threshold for follow up. Please schedule a followup visit with your personal physician as soon as possible, for further evaluation and treatment. Even blood pressure exceeding 120/80 may indicate pre-hypertension. Patient Language: E[place] Prescriptions: No Action pramipexole 0.25 mg tablet estradiol 2 mg tablet escitalopram oxalate 10 mg tablet ropinirole 1 mg tablet 1 mg PO TID amlodipine 10 mg tablet 10 mg PO DAILY lisinopril 10 mg tablet 10 mg PO DAILY hydrochlorothiazide 12.5 mg capsule 12.5 mg PO DAILY Ozempic 0.25 mg or 0.5 mg(2 mg/1.5 mL) pen injector 0.25 mg SUBCUT WEEKLY Follow-up/Referrals: Tito,Eunice Vieira [Primary Care Provider] - Time of Disposition: 16:46
== END 2025-01-13 16:57 | disposition home or self-care (01) ==
PROVIDERS: Emergency Provider Nurse Practitioner; PCP Nurse Practitioner
DX: H61.22 Impacted cerumen, left ear (principal)
CPT/HCPCS: 69209; 99213; A9270; G0463

== ENCOUNTER 2025-03-30 13:32 | Emergency (ER) | payer BC, SELFPAY ==
--- OUTSIDE RECORDS SUMMARY | 2025-03-30 13:37 | XMS_ITS | Encounter Summary ---
Author Organization [facility] Address [address] [place] [address] Phone Care Team Providers Care Professor Of Genetics Name Role Phone Meg Tyler Primary Care Pro vider Flaca Harrell APRN, PATTERN STAMPER Unavailable Reason for Visit * Reason Comments Medication Refill Encounter Details Date Type Department Care Team (Late st Contact Info) Description 06/21/2023 Refill [facility] - Internal Medicine - [place] [address] [place] [phone] Meg Tyler, [facility] [address] [place] [address] Medication Refill Social History Tobacco Use Types [...] 12/22/22 Office Visit Meg Tyler PAC [facility] [place] Showing recent visits within past 182 days and meeting all other requirements Future Appointments No visits were found meeting these conditions. Showing future appointments within next 90 days and meeting all other requirements Passed - Has an encounter in the past 6 months with a depression, anxiety, adjustment disorder, OCD, or PTSD visit diagnosis TRICAL AND INSTRUMENT MECHANIC documented in this encounter Plan of Treatment Not on file documented as of this encounter Visit Diagnoses Not on filedocumented in this encounter Additional Health Concerns Assessment Noted Time PHQ-9 Depression Total Score: 0 04/22/20 21 10:00 AM CDT documented as of this encounter Care Teams Professor Of Genetics Relationship Specialty Start Date End Date Meg Tyler PAC PCP - General Physician Manager Baby 04/22/21 Flaca Harrell APRN, PATTERN STAMPER [address] [place] [address] Nurse Practitioner Advanced Practice Nurse 12/01/23 documented as of this encounter
--- OUTSIDE RECORDS SUMMARY | 2025-03-30 13:37 | XMS_ITS | Encounter Summary ---
Author Organization [facility] Address [address] [place] [address] Phone Care Team Providers Care Machine Assembler Name Role Phone Meg Tyler Primary Care Pro vider Flaca Harrell APRN, MANAGER PRIVATE Unavailable Reason for Visit * Reason Comments Medication Refill Encounter Details Date Type Department Care Team (Late st Contact Info) Description 01/09/2024 Refill [facility] - Internal Medicine - [place] [address] [place] [phone] Meg Tyler, [facility] [address] [place] [address] Medication Refill Social History Tobacco Use Types Packs/Day Years Used Date Smoking Tobacco: Never Smokeless Tobacco: Never Alcohol Use Standard Drinks/Week Comments Not Currently 0 (1 standard drink = 0.6 oz pur e alcohol) [facility] Utilities Answer Date Recorded In the past 12 months has [employer] electric, gas, oil, or water company threatened [...] week 10/14/2023 How often do you attend [facility] or rastafari services? More than 4 times per year 10/14/2023 Do you belong to any clubs o r organizations such as spiritism groups, unions, fraternal or athletic groups, or [...] Total Score - Questions 1-9 1 12/02 [facility] - Occupational Stress [...] place to sleep or slept in a [facility] (including now)? No 10/14/2023 Education Answer Date [...] Dept 10/14/23 [facility] Showing recent visits within past [...] documented as of this encounter Care Teams Machine Assembler Relationship Specialty Start Date End Date Meg Tyler PAC PCP - General Physician Auditor/Quality 04/22/21 Flaca Harrell APRN, MANAGER PRIVATE [address] [place] [address] Nurse Practitioner Advanced Practice Nurse 12/01/23 documented as of this encounter
--- OUTSIDE RECORDS SUMMARY | 2025-03-30 13:37 | XMS_ITS | Encounter Summary ---
Author Organization [facility] Address [address] [place] [address] Phone Care Team Providers Care Social Service Manager Name Role Phone Meg Tyler PAC Primary Care Pro vider Flaca Harrell APRN, BINDING CEMENTER [place] Unavailable Reason for Visit * Reason Comments Medication Refill Encounter Details Date Type Department Care Team (Late st Contact Info) Description 06/21/2023 Refill [facility] - Pulmonology & Sleep Medicine - [place] [address] [place] [phone] Sharon Deleon, SEBAS, BINDING CEMENTER [place] [address] [address] Medication Refill Social History Tobacco Use Types [...] 8:53 AM CST Patient needs an appointment TRICIAN documented in this encounter Plan of Treatment Not on file documented as of this encounter Visit Diagnoses Diagnosis Restless legs syndrome (RLS) documented in this encounter Additional Health Concerns Assessment Noted Time PHQ-9 Depression Total Score: 0 04/22/20 21 10:00 AM CDT documented as of this encounter Care Teams Social Service Manager Relationship Specialty Start Date End Date Meg Tyler PAC PCP - General Physician Job Coach 04/22/21 Flaca Harrell APRN, BINDING CEMENTER [place] [address] [place] [address] Nurse Practitioner Advanced Practice Nurse 12/01/23 documented as of this encounter
--- OUTSIDE RECORDS SUMMARY | 2025-03-30 13:38 | XMS_ITS | Encounter Summary ---
Author Organization [facility] Address [address] [place] [address] Phone Care Team Providers Care Computer Numeric Control Setter Name Role Phone Meg Tyler Primary Care Pro vider Flaca Harrell APRN, PENS AND PENCILS REPAIRER Unavailable Reason for Visit * Reason Comments Medication Refill Encounter Details Date Type Department Care Team (Late st Contact Info) Description 12/16/2022 Refill [facility] - Internal Medicine - [place] [address] [place] [phone] Meg Tyler, [facility] [address] [place] [address] Medication Refill Social History Tobacco Use Types [...] documented as of this encounter Care Teams Computer Numeric Control Setter Relationship Specialty Start Date End Date Meg Tyler PAC PCP - General Physician Workforce Analyst 04/22/21 Flaca Harrell APRN, PENS AND PENCILS REPAIRER [address] [place] [address] Nurse Practitioner Advanced Practice Nurse 12/01/23 documented as of this encounter
--- OUTSIDE RECORDS SUMMARY | 2025-03-30 13:38 | XMS_ITS | Clinical Summary ---
Author Organization [facility] Address [address] [place] [address] Care Team Providers Care Coach Name Role Phone Meg Tyler Primary Care Pro vider SchFlaca deutsch APRN, WOODWIND INSTRUMENTS INSPECTOR Unavailable Allergies Active Allergy Reactions Criticality Noted [...] 25 Active escitalopram (LEXAPRO) 10 MG Tablet TAKE 1 TABLET BY MOUTH EVERY DAY 90 Tablet 02/09/20 25 Active pramipexole (MIRAPEX) 0.25 MG Tablet TAKE 1 TABLET BY MOUTH EVERY DAY AT NIGHT 30 Tablet 03/14/20 25 Active pramipexole (MIRAPEX) 0.25 MG Tablet Take 1 Tablet by mouth nightly. 30 Tablet 01/26/20 25 025 Discontinued Active Problems Problem Noted Date Diagnosed Date Type 2 diabetes mellitus 05/18/2023 Family history of heart disease 12/22/2022 LEVI (obstructive sleep apnea) 11/08/2021 Restless legs syndrome (RLS) 11/08/2021 Post-nasal drip 11/08/2021 Encounters Date Type Department Care Team Description 03/13/2025 Refill [facility] [address] [place] [phone] Meg Tyler, PAC Medication Refill 02/08/2025 Refill [facility] [address] [place] [phone] Meg Tyler, PAC Medication Refill 01/27/2025 Refill [facility] [address] [place] [phone] Meg Tyler, PAC Medication Refill 01/25/2025 Refill [facility] [address] [place] [phone] Meg Tyler, PAC Medication Refill 12/30/2024 Refill [facility] [address] [place] [phone] Meg Tyler, PAC Medication Refill from Last 3 Months Immunizations [...] pur e alcohol) ONCE IN A YEAR [facility] Utilities Answer Date Recorded In the past 12 months has th e electric, gas, oil, or water company threatened [...] often do you attend chur ch or evangelical services? More than 4 times per year 10/14/2023 Do you belong to any clubs o r organizations such as protestant groups, unions, fraternal or athletic groups, or [...] Total Score - Questions 1-9 1 12/02 [facility] - Occupational [...] place to sleep or slept in a usp (including now)? No 10/14/2023 Education Answer Date [...] Virus (HCV) Screening 1988 TdaP Immunization 1988 Hepatitis B Immunization (1 of 3 - 19+ 3-dose series) 2007 Pneumococcal Immunization Combined (1 of 2 - PCV) 2007 Human Papillomavirus (HPV) Immunization (1 - 3-dose SCDM series) 2015 SARS-COV-2 Immunization ( season) 2024 07/18/2021, 11/09/2020, 10/18/2020 Diabetes: Hemoglobin A1c 04/16/2024 024, 04/18/2022, 04/24/2021 Diabetes: Nephropathy Screening 10/14/2024 10/15/2023, 04/18/2022, 04/24/2021 Influenza Immunization (#1) 2025 09, 05/08/2021 Pap Smear 05/03/2027 05/03/2024 Cervical Cancer [...] (HPV) 05/03/2024 12:00 AM CDT PATHOLOGY CYTOLOGY PUBLIC HEALTH ADVISOR 05/03/2024 12:00 AM CDT CMP (COMPREHENSIVE METABOLIC PANEL) Routine 10/15/2023 7:11 AM CDT Well adult exam HEMOGLOBIN A1C W/ ESTIMATED GLUCOSE Routine 10/15/2023 7:11 AM CDT Well adult exam from Last 3 Months or Most Recently Relevant to Health Maintenance Results * PATHOLOGY CYTOLOGY PUBLIC HEALTH ADVISOR (05/03/2024 12:00 AM CDT) 05/03/2024 us Provider Scan PATHOLOGY/CYTOLOGY ORDERABLES Fi nal Result SCAN * HUMAN PAPILLOMA VIRUS (HPV) (05/03/2024 12:00 AM CDT) 05/03/2024 us Provider Scan LAB SEND OUTS Final Result Performing Organization Address City/[facility]/ZIP Co de Phone Number SCAN * (ABNORMAL) HEMOGLOBIN A1C W/ ESTIMATED GLUCOSE (10/15/2023 7:11 AM CDT) HGB-A1C 6.3(H) 4.0 - 6.0 % 10/15/2023 3:24 PM CDT [facility] Est Average Glucose 134.1 mg/dL 10/15/2023 3:24 PM CDT [facility] Blood Venipuncture / Unknown 10/15/2023 7:11 AM CDT 10/15/2023 7:11 AM CDT Narrative [facility] - 10/15/2023 3:24 PM CDT HEMOGLOBIN A1C: DIABETIC PATIENTS: WELL-CONTROLLED: 6.2 - 7.0 INTERMEDIATE WELL-CONTROLLED: 7.0 - 9.0 POORLY-CONTROLLED: >9.0 Meg Tyler PAC CHEMISTRY ORDERAB LES Final Result [facility] [address] [place] [address] * (ABNORMAL) CMP (COMPREHENSIVE METABOLIC PANEL) (10/15/2023 7:11 AM CDT) Pathologist [facility] SODIUM 139 136 - 145 mmol/L 10/15/2023 3:22 PM CDT [facility] POTASSIUM 4.3 3.5 - 5.1 mmol/L 10/15/2023 3:22 PM CDT [facility] CHLORIDE 107 98 - 107 mmol/L 10/15/2023 3:22 PM CDT [facility] CO2, VENOUS 21(L) 22 - 30 mmol/L 10/15/2023 3:22 PM CDT [facility] ANION GAP 15.3 <18.0 mmol/L 10/15/2023 3:22 PM CDT [facility] GLUCOSE 124(H) 70 - 99 mg/dL 10/15/2023 3:22 PM CDT [facility] BUN 14 5 - 18 mg/dL 10/15/2023 3:22 PM CDT [facility] CREATININE, BLOOD 0.80 0.60 - 1.00 mg/dL 10/15/2023 3:22 PM CDT [facility] BUN/CREATININE RATIO 18 12 - 20 ratio 10/15/2023 3:22 PM CDT [facility] TOTAL PROTEIN 7.2 6.3 - 8.2 g/dL 10/15/2023 3:22 PM CDT [facility] ALBUMIN 4.3 3.5 - 5.0 g/dL 10/15/2023 3:22 PM CDT [facility] A/G RATIO 1.5 1.0 - 2.2 10/15/2023 3:22 PM CDT [facility] CALCIUM 9.8 8.7 - 10.5 mg/dL 10/15/2023 3:22 PM CDT [facility] T BILI 0.3 0.2 - 1.2 mg/dL 10/15/2023 3:22 PM CDT [facility] SGOT (AST) 75(H) 5 - 34 U/L 10/15/2023 3:22 PM CDT [facility] SGPT (ALT) 117(H) 0 - 55 U/L 10/15/2023 3:22 PM CDT [facility] ALKALINE PHOSPHATASE 73 40 - 150 U/L 10/15/2023 3:22 PM CDT [facility] IS THE PATIENT REQUIRED TO BE FASTING? No 10/15/2023 3:22 PM CDT [facility] GFR, ESTIMATED >60 >=60 10/15/2023 3:22 PM CDT [facility] Comment: Creatinine Clearance is the preferred criteria for selecting drug dose adjustments in renally impaired patients. The GFR is provided as additional pertinent clinical information. GFR is reported in mL/min/1.73 sq m. Calculation based on the Chronic Kidney Disease Epidemiology Collaboration (CKD- EPI) equation refit without adjustment for race. GFR, EST. >60 >=60 024 3:22 PM CDT [facility] GFR, EST. NONAFRICAN >60 >=60 10/15/2023 3:22 PM CDT [facility] Blood Venipuncture / Unknown 10/15/2023 7:11 AM CDT 10/15/2023 7:11 AM CDT Meg Tyler PAC CHEMISTRY ORDERAB LES Final Result [facility] [address] [place] [address] from Last 3 Months or Most Recently Relevant to Health Maintenance Insurance [facility] Care Teams Coach Relationship Specialty Start Date End Date Meg Tyler PAC PCP - General Physician Filler Spreader 04/22/21 Flaca Harrell APRN, WOODWIND INSTRUMENTS INSPECTOR [address] [place] [address] Nurse Practitioner Advanced Practice Nurse 12/01/23
--- OUTSIDE RECORDS SUMMARY | 2025-03-30 13:38 | XMS_ITS | Encounter Summary ---
Author Organization [facility] Address [address] [place] [address] Phone Care Team Providers Care Microelectronics Engineer Name Role Phone Meg Tyler Primary Care Pro vider Flaca Harrell APRN, WEAPONS DESIGNER Unavailable Reason for Visit * Reason Comments Medication Refill Encounter Details Date Type Department Care Team (Late st Contact Info) Description 03/26/[address] [facility] - Internal Medicine - [place] [address] [place] [phone] Meg Tyler, [facility] [address] [address] Medication Refill Social History Tobacco Use Types [...] Dept 12/22/22 Office Visit Meg Tyler, LOUISE [facility] Donna Showing recent visits within past 182 [...] documented as of this encounter Care Teams Microelectronics Engineer Relationship Specialty Start Date End Date Meg Tyler, LOUISE PCP - General Physician Customs And Immigration Officer 04/22/21 Flaca Harrell APRN, WEAPONS DESIGNER [address] [place] [address] Nurse Practitioner Advanced Practice Nurse 12/01/23 documented as of this encounter
--- OUTSIDE RECORDS SUMMARY | 2025-03-30 13:38 | XMS_ITS | Encounter Summary ---
Author Organization [facility] Address [address] [place] [address] Care Team Providers Care Boat Repairer Name Role Phone No, Physician Primary Care Provider [phone] Arlene Vargas Unavailable Unavailable Encounter Details Date Type Department Care Team (Late st Contact Info) Description 03/29/2025 Patient Self-Triage [facility] HealthCare/[facility] Physicians [facility] [place] [address] Mychart, Generic Provider [address] [place] [address] Social History Tobacco Use Types Packs/Day Years Used Date Smoking Tobacco: Never Cigarettes Smokeless Tobacco: Never Alcohol Use Standard Drinks/Week Comments Not Currently 0 (1 standard drink = 0.6 oz pur e alcohol) Comments No Sex and Gender Information Value Date Recorded Sex Assigned at Not on file Legal Sex Female 11:50 PM DEICER REPAIRER Gender Identity Female 06/29/2023 10:47 PM DEICER REPAIRER Sexual Orientation Straight 06/29/2023 10 :47 PM DEICER REPAIRER Occupation Industry Job Start Date Job End Date Not on file Not on file Not on file Not on file documented as of this encounter Plan of Treatment Not on file documented as of this encounter Visit Diagnoses Not on filedocumented in this encounter Care Teams Boat Repairer Relationship Specialty Start Date End Date No, Physician PCP - General 08/31/19 Arlene Vargas 08/31/19 documented as of this encounter
--- OUTSIDE RECORDS SUMMARY | 2025-03-30 13:38 | XMS_ITS | Clinical Summary ---
Author Organization [facility] [place] [facility] Address [address] [place] [address] Care Team Providers Care Drug Safety Specialist Name Role Phone No, Physician Primary Care Provider [phone] Arlene Vargas Unavailable Unavailable Allergies Active Allergy Reactions Criticality Noted Date Comments Lisinopril Cough Low 02/07/2022 Topiramate Other (See comments) Low 04/22/2021 NUMBNESS FEELING IN FINGERTIPS Medications traMADol (ULTRAM) 50 mg tablet Take 1-2 tablets (50-100 mg total) by mouth every 6 (six) hours as needed for pain (1 tablet for mild to moderate pain or 2 tablets for severe pain). 20 tablet 7 Active Additional Information Patient not taking.Reported on 10/19/2024 ondansetron (ZOFRAN) 4 mg tablet Take 1 tablet (4 mg total) by mouth every 8 (eight) hours as needed for vomiting or nausea 40 tablet 4 Active Additional Information Patient not taking.Reported on 10/19/2024 pramipexole (MIRAPEX) 0.25 mg tablet Take 1 tablet (0.25 mg total) by mouth nightly Active buPROPion XL (WELLBUTRIN XL) 150 mg 24 hr tablet Take 1 tablet (150 mg total) by mouth early head start teacher before breakfast 4 Active amLODIPine (NORVASC) 10 mg tablet Take 1 tablet (10 mg total) by mouth daily 3 Active SUMAtriptan (IMITREX) 50 mg tablet Take 1 tablet (50 mg total) by mouth daily as needed 1 Active LORazepam (ATIVAN) 1 mg tablet Take 1 tablet (1 mg total) by mouth once for 1 dose Take 30 minutes prior to procedure 1 tablet 5 Active docusate sodium (COLACE) 100 mg capsuleIndicati ons:constipatio n Take 1 capsule (100 mg total) by mouth 2 (two) times a day 60 capsule 3 5 Active Additional Information Patient not taking.Reported on 10/19/2024 estradioL (ESTRACE) 2 mg tablet Take 1 tablet (2 mg total) by mouth daily for 10 days 10 tablet 5 Active Active Problems Problem Noted Date Diagnosed Date Type 2 diabetes mellitus 05/18/2023 LEVI (obstructive sleep apnea) 11/08/2021 Restless legs syndrome (RLS) 11/08/2021 Post-nasal drip 11/08/2021 Other seborrheic dermatitis 09/28/2016 Other alopecia areata 09/26/2016 Encounters Date Type Department Care Team Description 03/29/2025 Patient Self-Triage [facility] HealthCare/ Physicians [address] [place], [place] [id number] Mychart, Generic Provider 01/10/2025 Orders Only [address] [address] Kati Schumacher DO from Last 3 Months Immunizations Immunization Administration Dates Next Due Influenza, Quadrivalent, Spl it, Preservative Free, Intramuscular 05/02/2022,05/08/2021 Surgical History Surgery Date Site/Laterality Comments TONSILLECTOMY TUBAL LIGATION CHOLECYSTECTOMY Medical History Medical History Date Comments Anxiety Migraines Hypertension Sleep apnea Menstrual problem Family History Medical History Relation Name Comments Diabetes type II Father Mickey Castro Diabetes -T ype II; Hypertension Father Mickey Castro Hypertension; Other Father Mickey Castro Alive [...] on file Legal Sex Female 11:50 PM DIGITAL PHOTO PRINTER Gender Identity Female 06/29/2023 10:47 PM DIGITAL PHOTO PRINTER Sexual Orientation Straight 06/29/2023 10 :47 PM DIGITAL PHOTO PRINTER Occupation Industry Job Start Date Job End Date Not on file Not on file Not on file Not on file Obstetrics History Para Term AB IAB SAB Ectopic Multiple Livin g Live Births 3 3 3 0 0 0 0 0 0 3 3 Date Outcome GA Total Labor Labor/2nd/3rd Weight Sex Type Anes PTL Angelique A1 [...] CDT Respiratory Rate 16 08/31/2019 11:38 AM DIGITAL PHOTO PRINTER Oxygen Saturation 96% 03/29/2021 4:43 PM CDT [...] <65 (1 of 2 - PCV) 2007 HPV Vaccines (1 - 3-dose SCDM series) 2015 eGFR 07/15/2018 07/15/2017 Covid-19 Vaccine ( season) 2024 07/18/2021, 11/09/2020, 10/18/2020 Influenza Vaccine (#1) 2025 05/02/2022, 2020 Cervical Cancer Screening 05/03/2025 05/03/2024, 08/2023 Regular Well Visit/Exam 18-64 05/03/2025 05/03/2024 Procedures Procedure Name Priority Date/Time Associated Diagnosis Comments HIGH RISK HPV DNA DETECTION WITH GENOTYPING Routine 05/03/2024 3:43 PM CDT Screening for malignant neoplasm of the cervix EGFR Add On 07/15/2017 12:41 PM DIGITAL PHOTO PRINTER from Last 3 Months or Most Recently Relevant to Health Maintenance Results * High Risk HPV DNA Detection with Genotyping (Molecular component) (05/03/2024 3:43 PM CDT) HPV HR 16 Not Detected Not Detected [facility] Comment:Testing performed by : [facility], [address] [place]., [address] HPV HR 18 Not Detected Not Detected [facility] Comment:Testing performed by : [facility], [address] [place]., [address] HPV HR Non 16/18 Not Detected Not Detected [facility] Comment: Interpretive Data Nucleic acid amplification for [...] this test have been verified by the [facility] Molecular Infectious Disease laboratory. Correlate with separately reported cytology results, as applicable. Interpretive data last revised 23 Testing performed by: [facility], [address] [facility], [place]., [address] Endocervical 05/03/2024 3:4 3 PM CDT 05/04/2024 2:34 PM CDT Narrative [facility] - 05/04/2024 9:08 PM CDT Clinical history and diagnosis->DX Z12.4 Testing type->Screening Last menstrual period (date if known)->Unknown us Kati Schumacher DO LAB BODY FLUIDS AND STO OLS ORDERABLES Final Result [facility] [address] Department [place] [address] [facility] * eGFR (07/15/2017 12:41 PM DIGITAL PHOTO PRINTER) eGFR >60 mL/min/1.7 3 m2 [facility] ([facility]) Comment: Interpretive Data Reference Interval Normal >/= 90 mL/min/1.73m2 Mildly decreased* 60 - 89 mL/min/1.73m2 Mildly to moderately decreased 45 - 59 mL/min/1.73m2 Moderately to severely decreased 30 - 44 mL/min/1.73m2 Severely decreased 15 - 29 mL/min/1.73m2 Kidney Failure < 15 mL/min/1.73m2 *Relative to young adult level If -Slovenian multiply value by 1.16. Estimated glomerular filtration [...] 2016. Blood specimen (specimen) 07/15/2017 12:41 PM DIGITAL PHOTO PRINTER 07/15/2017 1:17 PM DIGITAL PHOTO PRINTER Narrative [facility] ([facility]) - 07/15/2017 1:53 PM DIGITAL PHOTO PRINTER us Rikki Ma Jr., MD LAB BLOOD ORDERABL ES Final Result [facility]) [address] [facility] [place] [address] from Last 3 Months or Most Recently Relevant to Health Maintenance Insurance [employer] [place] [employer] [place] [employer] [place] [facility] Care Teams Drug Safety Specialist Relationship Specialty Start Date End Date No, Physician PCP - General 08/31/19 Arlene Vargas 08/31/19
--- OUTSIDE RECORDS SUMMARY | 2025-03-30 13:38 | XMS_ITS | Encounter Summary ---
Author Organization [facility] Address [address] [place] [address] Phone Care Team Providers Care Software Systems Architect Name Role Phone Meg Tyler Primary Care Pro vider Flaca Harrell APRN, DEPARTURE CLERK Unavailable Reason for Visit * Reason Comments Medication Refill Encounter Details Date Type Department Care Team (Late st Contact Info) Description 03/20/2023 Refill [facility] - Internal Medicine - [place] [address] [place] [phone] Meg Tyler, [facility] [address] [place] [address] Medication Refill Social History Tobacco Use Types [...] Dept 12/22/22 [facility] [place] Showing recent visits within past 182 days [...] documented as of this encounter Care Teams Software Systems Architect Relationship Specialty Start Date End Date Meg Tyler PAC PCP - General Physician Drier Tender Naphthalene 04/22/21 Flaca Harrell APRN, DEPARTURE CLERK [address] [place] [address] Nurse Practitioner Advanced Practice Nurse 12/01/23 documented as of this encounter
[2025-03-30 13:40] VITALS: BP 148/100; PULSE 80; RESP 20; TEMP 36.7; O2SAT 100
--- NOTE | 2025-03-30 13:52 | ED.EYEPROB ---
HPI - Eye Problem General Chief complaint: Eye Problems Stated complaint: right eye pain Time Seen by Provider: 03/30/25 13:50 Source: patient Mode of arrival: ambulatory Limitations: no limitations History of Present Illness HPI Narrative: Tamiko is a 34-year-old female patient presenting to the clinic today with complaints of right lower eyelid pain x1 day. She reports symptoms started this morning. No drainage from the eye or any eye injury. No visual changes. She has applied warm compress to the area but has not taken any medications for her symptoms. Rates pain 5/10 currently. Related Data Home Medications ?Medication ?Instructions ?Recorded ?Confirmed ?Last Taken ?Type amlodipine 10 mg tablet 10 mg PO DAILY 10/09/22 10/09/22 Unknown History hydrochlorothiazide 12.5 mg capsule 12.5 mg PO DAILY 10/09/22 10/09/22 Unknown History lisinopril 10 mg tablet 10 mg PO DAILY 10/09/22 10/09/22 Unknown History ropinirole 1 mg tablet 1 mg PO TID 10/09/22 10/09/22 Unknown History semaglutide 0.25 mg or 0.5 mg (2 0.25 mg subcut WEEKLY 10/09/22 10/09/22 Unknown History mg/1.5 mL) subcutaneous pen injector (Ozempic) escitalopram oxalate 10 mg tablet mg 01/13/25 Unknown History estradiol 2 mg tablet mg 01/13/25 Unknown History pramipexole 0.25 mg tablet mg 01/13/25 Unknown History Allergies Allergy/AdvReac Type Severity Reaction Status Date / Time No Known Allergies Allergy Verified 01/13/25 16:23 [facility] Past Medical History Medical History Migraines Surgical History Surgical History H/O tubal ligation Hx of tonsillectomy Family History Family History Father Diabetes mellitus Hypertension Social History Social History Smoking status: Never smoker Substance use: never Gender identity (if verbalized by the patient): Female Spiritual care concerns: No Comments At the time of my signature, I reviewed and agree with the nursing past medical, surgical, social, and family history. There is no relevant family history pertinent to the patient complaint. Exam Narrative: General: Well-developed, well nourished, in no apparent distress Head: Normocephalic, atraumatic Eyes: Pupils equally round and reactive to light bilaterally, EOM intact, sclera and conjunctive clear, no discharge, left eyelids normal, right lower inner eyelid swollen, red, with pustule lesion to the internal medial eyelid, tenderness to palpation, no drainage Ears: TMs intact and clear, ear canals clear, no drainage, grossly hearing normal. Nose: Nares patent, no discharge, no inflammation, no sinus tenderness. Mouth: Oropharynx without lesions or masses, good dentition, MMM. Neck: Supple, trachea midline, no enlargement of anterior or posterior cervical nodes, no thyroid masses or goiter palpable. Cardio: Regular rate and rhythm, s1 and s2 normal, no murmur appreciated. Resp: Clear to auscultation bilaterally anteriorly and posteriorly, no rhonchi, rales, wheezing or rubs Course Course Emergency Course: Portions of this record may have been created with voice recognition software. Level of Care: Express Care Visit Vital Signs Vital signs: Vital signs reviewed MDM - Eye Problem MDM Narrative Medical decision making narrative: At the time of visit patient is resting comfortably on the exam table. Patient appears to be nontoxic. Complaints of right lower eyelid pain x1 day. She reports symptoms started this morning. No drainage from the eye or any eye injury. No visual changes. She has applied warm compress to the area but has not taken any medications for her symptoms. Rates pain 5/10 currently. On exam patient has an internal stye to the right inner lower eyelid Plan: I suspect patient has a right internal stye. Prescription for polymyxin eyedrops was sent to the pharmacy. Warm compresses were encouraged Supportive measures were discussed with the patient and they voiced understanding discharge instructions and agrees to treatment plan. Return precautions reviewed Differential Diagnosis Differential diagnosis: Likely corneal abrasion, conjunctivitis, acute iritis, hyphema, periorbital cellulitis, subconjunctival hemorrhage, glaucoma, corneal ulcer, ruptured globe and other (Stye) Discharge Plan Discharge Clinical Impression: Hordeolum internum of right lower eyelid Patient Disposition: Home Condition: Stable Instructions: Ricky Mallory (ED) Additional Instructions: Practice good hand washing techniques Avoid touching eyes Instill eyedrops as prescribed-polymyxin eyedrops May use warm moist washcloth compresses-leave in place for approximately 15-20 minutes 6 times daily If eyes are matted shut-do not pry eyes open-use a warm moist cloth to loosen matting and wipe matter away from eye May take Tylenol/Motrin as needed for pain or fever May take Benadryl as needed for itching Follow-up with your PCP in 3-5 days if symptoms persist or sooner if they worsen Go to the emergency room if you develop any fever that is not controlled by Tylenol or Motrin, loss of vision, eye pain, increase eye swelling,visual changes, headache, confusion, lethargy, weakness, chest pain, or shortness of breath. Patient Language: Italian Prescriptions: New polymyxin B sulf-trimethoprim 10,000 unit- 1 mg/mL drops 1 drp RIGHT EYE Q3H 7 Days Qty: 10 0RF Rx Instructions: while awake; do not exceed 6 doses in 24 hours No Action pramipexole 0.25 mg tablet estradiol 2 mg tablet escitalopram oxalate 10 mg tablet ropinirole 1 mg tablet 1 mg PO TID amlodipine 10 mg tablet 10 mg PO DAILY lisinopril 10 mg tablet 10 mg PO DAILY hydrochlorothiazide 12.5 mg capsule 12.5 mg PO DAILY Ozempic 0.25 mg or 0.5 mg(2 mg/1.5 mL) pen injector 0.25 mg SUBCUT WEEKLY Follow-up/Referrals: Tito,Eunice Vieira [Primary Care Provider, Unknown] Time of Disposition: 13:54 Quality NIHSS Nursing Documentation ED NIHSS nursing documentation: reviewed/agree
== END 2025-03-30 13:55 | disposition home or self-care (01) ==
PROVIDERS: Emergency Provider Nurse Practitioner Family; PCP Nurse Practitioner
DX: H00.022 Hordeolum internum right lower eyelid (principal)
CPT/HCPCS: 99213; G0463